=== PATIENT | male | born 1935 | race Caucasian/White ===

== ENCOUNTER → 2021-06-26 14:29 | Outpatient (BNVA) | payer MEDICARE, SELFPAY | PROVIDERS: PCP Family Medicine; Visit Provider Nurse Practitioner Family | DX: R00.1 Bradycardia, unspecified (principal) ==

== ENCOUNTER 2021-06-26 16:08 | Inpatient (IN) | payer MEDICARE, SELFPAY ==
[2021-06-26] VITALS (8 sets, daily range): BP systolic 152–187; BP diastolic 52–87; PULSE 39–56; RESP 16–20; TEMP 36.6–36.9; O2SAT 92–98; BMI 25.3
--- NOTE | 2021-06-26 16:19 | ED_ITS ---
HPI - Arrhythmia/Palpitations General: Chief Complaint: Arrhythmia/Palpitations Stated Complaint: abnormal EKG Time Seen by Provider: 06/26/21 16:19 History of Present Illness: Mr. Little is a 85-year-old gentleman with a complex past medical history including CAD with history of CABG x6, Maze procedure, removal of left atrial appendage who presents to the emergency department due to abnormal EKG and symptomatic bradycardia. He reports approximately 1 week ago acute onset of symptoms. He describes generalized fatigue and malaise. He has had shortness of breath and marked decreased exertional tolerance. Additionally has noticed mild increased edema. He saw his primary care provider who noticed that he was bradycardic and he stopped his metoprolol. He is not currently on any other AV lester blocking agents. He presented to cardiology clinic and was referred to the emergency department for either complete heart block or slow atrial fibrillation. Intensity of symptoms is moderate and severe with exertion. Course has persisted. He denies associated chest pain. He denies infectious symptoms. No other specific changes in health, exacerbating, or alleviating factors identified. 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 Allergic rhinitis Aortic valve stenosis Asthma Atherosclerosis of coronary artery of [place] heart without angina pectoris Atrial fibrillation Benign essential HTN Bilateral cataracts Chronic atrial fibrillation Coronary arteriosclerosis Coronary artery disease Dyslipidemia GERD (gastroesophageal reflux disease) Iron deficiency anemia AR (myocardial infarction) Mixed hyperlipidemia Pacemaker Prediabetes Symptomatic bradycardia Symptomatic bradycardia Surgical History H/O heart surgery MARIBELL removal H/O maze procedure History of left hip replacement History of right hip replacement S/P coronary artery bypass graft x 5 Family History Mother Hypertension Social History Smoking and tobacco status: never smoked Alcohol intake: never Physical Exam Const: COMMON NORMALS: alert GENERAL APPEARANCE: cooperative and well developed HENMT: COMMON NORMALS: normocephalic and atraumatic HEAD & SCALP: normocephalic and atraumatic Eye: COMMON NORMALS: conjunctivae normal CONJUNCTIVA: Yes conjunctivae normal SCLERA: sclerae normal Neck/C-Spine: COMMON NORMALS: supple GENERAL: Yes trachea midline Resp: COMMON NORMALS: clear to auscultation bilaterally EFFORT & INSPECTION: Yes able to speak in complete sentences AUSCULTATION: clear to auscultation bilaterally Cardio: COMMON NORMALS: regular rhythm RATE: bradycardic RHYTHM: regular rhythm GI: COMMON NORMALS: Soft to palpation PALPATION: Yes Soft to palpation and No Tenderness to palpation present (GI) Extremity: GENERAL: Yes normal exam except as noted and Yes edema Neuro: COMMON NORMALS: moves all extremities SENSORIUM/ORIENTATION: Yes alert and No Orientation impaired Psych: COMMON NORMALS: mental status grossly normal and Normal thought process present THOUGHT PROCESS: Normal thought process present Course ED course: - Patient was seen and evaluated by me at bedside - Patient placed on cardiac monitors, IV access obtained - Initial evaluation notable for exam as above, bradycardia. Blood pressure adequate at rest. - Labs and xrays personally interpreted by me. EKGs from 1547, 1747, 1838 perso nereyda interpreted by me. Bradycardia present with right bundle branch block. Suspected to be a complete heart block though no Q waves are identified on twelve-lead EKGs - Labs notable for no leukocytosis, normal hemoglobin. Metabolic panel without acute derangement to explain symptoms. BNP elevated without recent, delta troponin negative. - Imaging notable for no lobar consolidation or pneumothorax - Upon serial reexamination after treatment the patient was similar - Based on patient history, evaluation, and testing as interpreted the most likely cause of the patient's condition is complete heart block which is symptomatic - The results of ED evaluation were discussed with the patient including plan for admission due to requirement for level of care not available if discharged to prevent significant worsening/deterioration. - Admitting service was contacted and Dr Anderson with the hospitalist service agreed to admit the patient - Patient was admitted without further deterioration or significant events. Note: Click bubbles or prepopulated mccormick in note writing are used for assistance with data collection and billing and are inherently more limited than narrative and other text portions of this note. Please use narrative for additional clinical history and defer to narrative/free test for any case of contradictory information. If information appears in only free text or click bubble it should be considered present or absent as reported. Please contact note adjusto writer operator for clarifications of clinical information or contradictory information. MDM is a brief summary, contradictory or erroneous seeming information should be clarified and full note should be reviewed. Vital Signs: Vital signs: Vital Signs Temperature 98.2 F 06/28/21 07:39 Pulse Rate 48 L 06/28/21 07:39 Respiratory Rate 18 06/28/21 07:39 Blood Pressure 137/69 06/28/21 07:39 Pulse Oximetry 97 06/28/21 07:39 MDM - Arrhythmia/Palpitations Medical Decision Making 85-year-old gentleman with complex past medical history including cardiac history presenting with 1 week of sudden onset decreased exertional tolerance and generalized symptoms. Patient found to be in heart care clinic to have either slow A. fib or complete heart block. No obvious cause identified in the ED. Admitted for further management. Medical Records I reviewed the patient's medical records. Lab Data I reviewed the patient's lab results. : 06/28/21 04:20 06/28/21 04:20 Radiology Impressions Chest X-Ray 06/28/21 06:00 IMPRESSION: There are no acute chest findings. Stable appearance of the chest compared with 06/26/2021. Laboratory Results WBC 7.4 10^3/uL (4.0-10.0) 06/26/21 16:38 RBC 4.31 10^6/uL (4.1-5.3) 06/26/21 16:38 Hgb 13.6 g/dL (11.7-16.6) 06/26/21 16:38 Hct 42.0 % (42.0-52.0) 06/26/21 16:38 MCV 97.4 fl (80-94) H 06/26/21 16:38 MCH 31.6 pg (28.0-34.0) 06/26/21 16:38 MCHC 32.4 g/dL (30.0-36.0) 06/26/21 16:38 RDW 14.4 % (12.1-15.1) 06/26/21 16:38 Plt Count 150 10^3/cmm (130-400) 06/26/21 16:38 MPV 11.6 fL (7.4-10.4) H 06/26/21 16:38 Neut % (Auto) 80.1 % 06/26/21 16:38 Lymph % (Auto) 7.8 % 06/26/21 16:38 Cowley % (Auto) 11.0 % 06/26/21 16:38 Eos % (Auto) 0.4 % 06/26/21 16:38 Baso % (Auto) 0.4 % 06/26/21 16:38 Neut # (Auto) 5.89 10^3/uL (1.8-7.7) 06/26/21 16:38 Lymph # (Auto) 0.6 10^3/uL (0.8-4.8) L 06/26/21 16:38 Cowley # (Auto) 0.8 10^3/uL (0.2-0.9) 06/26/21 16:38 Eos # (Auto) 0.0 10^3/uL (0.0-0.8) 06/26/21 16:38 Baso # (Auto) 0.0 10^3/uL (0.0-0.1) 06/26/21 16:38 Nucleated RBC % (auto) 0 % 06/26/21 16:38 Nucleated RBCs # 0.0 /100WBC 06/26/21 16:38 Sodium 134 mmol/L (136-145) L 06/26/21 17:40 Potassium 4.8 mmol/L (3.5-5.1) 06/26/21 17:40 Chloride 98 mmol/L (98-107) 06/26/21 17:40 Carbon Dioxide 23 mmol/L (22-29) 06/26/21 17:40 Anion Gap 17.8 (5-19) 06/26/21 17:40 BUN 25 mg/dL (8-23) H 06/26/21 17:40 Creatinine 1.2 mg/dL (0.7-1.2) 06/26/21 17:40 GFR Calculation Not Reportable 06/26/21 17:40 Glucose 119 mg/dL (65-115) H 06/26/21 17:40 Calculated Osmolality 284 mOsm/kg (285-295) L 06/26/21 17:40 Calcium 9.5 mg/dL (8.5-10.5) 06/26/21 17:40 Magnesium 1.8 mg/dL (1.7-2.3) 06/26/21 17:40 Total Bilirubin 0.9 mg/dL (0.15-1.2) 06/26/21 17:40 AST 30 U/L (0-40) 06/26/21 17:40 ALT 24 U/L (0-41) 06/26/21 17:40 Alkaline Phosphatase 128 IU/L (40-130) 06/26/21 17:40 Troponin T Baseline 66 ng/L (0-15) H 06/26/21 17:40 NT-Pro-B Natriuret Pep 2322 pg/mL (0-450) H 06/26/21 17:40 Total Protein 6.6 g/dL (6.6-8.7) 06/26/21 17:40 Albumin 4.3 g/dL (3.5-5.2) 06/26/21 17:40 Globulin 2.3 g/dL (1.3-4.6) 06/26/21 17:40 TSH 2.71 uIU/mL (0.27-4.20) 06/26/21 17:40 Critical Care Time Critical Care Time: Critical Care Time: Yes Total Critical Care Time: 35 Attestation: Due to a high probability of clinically significant, possibly life threatening deterioration, the patient required my highest level of attention and preparedness to intervene emergently and I personally spent this critical care time directly and personally managing the patient. This critical care time included obtaining a history; examining the patient; pulse oximetry; ordering and review of laboratory and imaging studies; arranging urgent treatment with development of a management plan; evaluation of patient's response to treatment; frequent reassessment; and, discussions with other providers as applicable. It was exclusive of separately billable procedures. 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
--- NOTE | 2021-06-26 16:29 | ECG_ITS ---
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 Measurements Intervals [place] Rate: 39 P: IA: QRS: -84 QRSD: 145 T: 1 QT: 515 QTc: 418 Interpretive Statements Atrial fibrillation with junctional escape rhythm Right bundle branch block Electronically Signed On 06-27-2021 13:36:11 CDT by Vijay Moraes M.D. [id number]
--- NOTE | 2021-06-26 16:29 | XRR_ITS ---
PROCEDURE INFORMATION: Exam: XR Chest Exam date and time: 06/26/2021 4:39 PM Age: 85 years old Clinical indication: Other: Bradypnea; Additional info: Bradycardia TECHNIQUE: Imaging protocol: XR of the chest. Views: 1 view. COMPARISON: No relevant prior studies available. FINDINGS: Lungs: Unremarkable. No consolidation. Pleural spaces: Unremarkable. No pleural effusion. No pneumothorax. Heart/Mediastinum: Unremarkable. No cardiomegaly. Bones/joints: Sternotomy wires noted. Visualized osseous structures are intact. XR/XR chest 1V portable [id number] IMPRESSION: No acute findings.
[2021-06-26 16:48] LABS: Basophils % 0.4 %; Eosinophils % 0.4 %; Hemoglobin 13.6 g/dL (11.7-16.6); Lymphocytes # 0.6 10^3/uL (0.8-4.8); Lymphocytes % 7.8 %; Mean Corpuscular HGB Conc 32.4 g/dL (30.0-36.0); Mean Corpuscular Hemoglobin 31.6 pg (28.0-34.0); Mean Corpuscular Volume 97.4 fl (80-94); Mean Platelet Volume 11.6 fL (7.4-10.4); Monocytes # 0.8 10^3/uL (0.2-0.9); Neutrophils # 5.89 10^3/uL (1.8-7.7); Neutrophils % 80.1 %; Nucleated Red Blood Cells % 0 %; Platelet Count 150 10^3/cmm (130-400); Red Blood Count 4.31 10^6/uL (4.1-5.3); Red Cell Distribution Width 14.4 % (12.1-15.1); White Blood Count 7.4 10^3/uL (4.0-10.0)
--- NOTE | 2021-06-26 17:21 | PC.NURSE ---
PT PLACED ON CONTINUOUS BEDSIDE CARDIAC, HR, AND O2 MONITORING.
[2021-06-26 18:19] LABS: Troponin(5th) Baseline 66 ng/L (0-15)
[2021-06-26 18:26] LABS: Alanine Aminotransferase 24 U/L (0-41); Albumin Level 4.3 g/dL (3.5-5.2); Alkaline Phosphatase 128 IU/L (40-130); Anion Gap 17.8 (5-19); Aspartate Amino Transferase 30 U/L (0-40); Blood Urea Nitrogen 25 mg/dL (8-23); Calcium 9.5 mg/dL (8.5-10.5); Carbon Dioxide 23 mmol/L (22-29); Chloride 98 mmol/L (98-107); Globulin 2.3 g/dL (1.3-4.6); Glucose 119 mg/dL (65-115); Magnesium 1.8 mg/dL (1.7-2.3); NT Pro B Type Natriuretic Pept 2322 pg/mL (0-450); Osmolality Calculated 284 mOsm/kg (285-295); Potassium 4.8 mmol/L (3.5-5.1); Sodium 134 mmol/L (136-145); Thyroid Stimulating Hormone 2.71 uIU/mL (0.27-4.20); Total Bilirubin 0.9 mg/dL (0.15-1.2); Total Protein 6.6 g/dL (6.6-8.7)
--- NOTE | 2021-06-26 18:29 | ECG_ITS ---
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 Measurements Intervals [place] Rate: 39 P: IN: QRS: -83 QRSD: 144 T: 16 QT: 537 QTc: 434 Interpretive Statements Atrial fibrillation Junctional rhythm RIGHT BUNDLE BRANCH BLOCK POSSIBLE ANTERIOR MYOCARDIAL INFARCTION , PROBABLY OLD INFERIOR MYOCARDIAL INFARCTION , OF INDETERMINATE AGE CRITICAL TEST RESULT Compared to ECG 06/26/2021 17:47:36 Right bundle-branch block now present Myocardial infarct finding now present Electronically Signed On 06-27-2021 11:20:28 CDT by Teresita Galeana M.D. [id number]
--- NOTE | 2021-06-26 19:55 | P.HP_ITS ---
Providers/Chief Complaint Primary Care Provider: AMY DENNEY MD Chief Complaint: abnormal EKG History of Present Illness Pleasant 85-year-old gentleman with history of atrial fibrillation, CAD, CABG, left atrial appendage removal, Maze procedure, over the past week has been feeling weaker, exercise intolerance, was seen by cardiology, previously on metoprolol, but this was stopped 2 days ago due to noted bradycardia. Noted minimal swelling of his feet. On presentation to emergency department heart rates are noted in high 30s-low 40s. He states that through the week his blood pressure has been increasing from 100 teens systolic up to today was as high as 232 systolic. Currently 181/87. His blood pressures were previously well controlled. Denies any fevers. Denies any tick bites since last year. Additional assessment in ER showed normal potassium, low normal magnesium for which he received replacement, normal TSH. Baseline troponin is 66. NT proBNP is 2322. EKG with ID ventricular rhythm with right bundle branch block. He states he otherwise has been at baseline health. He reports alpha gal allergy. Review of Systems Const: Reports: fatigue; Denies: fever(s), chills, body aches or malaise Eyes: Denies: change in vision, eye discomfort or eye redness ENMT: Denies: throat pain, oral sores or ear or mastoid pain Card: Reports: swelling of feet/ankles and other (simeon); Denies: chest pain, edema, pre-syncope or dyspnea on exertion Resp: Denies: dyspnea, productive cough, change in phlegm color or hemoptysis GI: Denies: abdominal pain, nausea, vomiting, diarrhea, constipation, hematochezia or melena : Denies: flank pain, difficulty urinating, urinary frequency or hematuria Musc: Denies: back pain, joint swelling or joint redness Skin/Breast: Denies: rash or new lesions Neuro: Denies: headache(s), numbness in extremities, weakness in extremities, dizziness, confusion or seizure-like activity Endo: Denies: polyuria or polydipsia [place]/Lymph: Denies: easy bleeding or tender lymph nodes All/Imm: Denies: urticaria or tongue swelling Medications/Allergies Home Medications Medication Instructions Recorded Confirmed Last Taken Type ascorbic acid (vitamin C) 1,000 mg 1 g PO DAILY tab 05/20/21 06/26/21 Unknown History tablet aspirin 81 mg tablet,delayed 81 mg PO DAILY 05/20/21 06/26/21 06/25/21 History release atorvastatin 40 mg tablet 40 mg PO DAILY 05/20/21 06/26/21 06/25/21 History cetirizine 10 mg tablet (All Day 10 mg PO DAILY PRN 05/20/21 06/26/21 Unknown History Allergy (cetirizine)) cholecalciferol (vitamin D3) 50 50 mcg PO DAILY 05/20/21 06/26/21 Unknown History mcg (2,000 unit) capsule coenzyme Q10 10 mg capsule 10 mg PO DAILY cap 05/20/21 06/26/21 Unknown History cyanocobalamin (vitamin B-12) 1,000 mcg PO DAILY 05/20/21 06/26/21 Unknown History 1,000 mcg tablet ferrous sulfate 325 mg (65 mg 325 mg PO BID 05/20/21 06/26/21 Unknown History iron) tablet (FeroSul) levothyroxine 150 mcg capsule 150 mcg PO DAILY 05/20/21 06/26/21 06/26/21 History magnesium 250 mg tablet 250 mg PO DIRECTED tab 05/20/21 06/26/21 Unknown History metoprolol tartrate 25 mg tablet 12.5 mg PO BID 05/20/21 06/26/21 Unknown Histor y pantoprazole 40 mg tablet,delayed 40 mg PO BID tab 05/20/21 06/26/21 06/26/21 History release kcjfswpztcti-mwnjldeb-butor acid 1 cap PO DAILY 06/26/21 06/26/21 Unknown History 400 mcg-vitamin K 40 mcg capsule (Multi For Him (no iron)) Allergies Allergy/AdvReac Type Severity Reaction Status Date / Time Zokbstpqx-Hbbwo-7,3-Galactose Allergy Severe Unknown Unverified 06/26/21 19:52 (Alph Penicillins Allergy Unknown Unknown Verified 06/26/21 19:52 PFSH Acute PFSH: Medical History (Updated 06/26/21 @ 19:57 by Amando Anderson MD) 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 Allergic rhinitis Aortic valve stenosis Asthma Atrial fibrillation Bilateral cataracts Coronary arteriosclerosis GERD (gastroesophageal reflux disease) Iron deficiency anemia ND (myocardial infarction) Mixed hyperlipidemia Prediabetes Surgical History (Updated 06/26/21 @ 19:59 by Amando Anderson MD) H/O heart surgery MARIBELL removal H/O maze procedure History of left hip replacement History of right hip replacement S/P coronary artery bypass graft x 5 Family History Mother Hypertension Social History Smoking and tobacco status: never smoked Alcohol intake: never Vitals/I&O/Wt Last Vital Signs Temp 98.5 F 06/26/21 16:29 Pulse 41 L 06/26/21 19:11 Resp 16 06/26/21 19:11 BP 181/87 06/26/21 19:11 Pulse Ox 95 06/26/21 19:11 Weight last 48 hrs Weight 87.09 kg Physical Exam Narrative: Family at bedside Const: COMMON NORMALS: alert GENERAL APPEARANCE: cooperative ORIENTATION/CONSCIOUSNESS: Yes awake HENMT: COMMON NORMALS: normocephalic, EAC's normal, Normal external nose present and moist oral mucous membranes HEAD & SCALP: normocephalic NOSE: Normal external nose present EXTERNAL AUDITORY CANAL: EAC's normal Neck/C-Spine: COMMON NORMALS: no meningeal signs Chest: CHEST: Yes Symmetrical chest wall rise Resp: COMMON NORMALS: clear to auscultation bilaterally AUSCULTATION: clear to auscultation bilaterally Cardio: COMMON NORMALS: regular rate, regular rhythm and No murmurs present ( Cardio) RATE: regular rate and bradycardic RHYTHM: regular rhythm GI: COMMON NORMALS: Normal to inspection, nondistended, normoactive bowel sounds present, Soft to palpation and non-tender PALPATION: Yes Soft to palpation Extremity: GENERAL: Yes edema (trace) Neuro: COMMON NORMALS: moves all extremities SENSORIUM/ORIENTATION: Yes alert MENINGEAL SIGNS: Yes no meningeal signs Psych: COMMON NORMALS: mental status grossly normal Skin: COMMON NORMALS: no wounds RASHES: no rashes Data : 06/26/21 16:38 06/26/21 17:40 A&P Assessment and plan (1) Symptomatic bradycardia: Heart rates in the high 30s, low 40s, with fatigue, appears to possibly have some mild acute congestive heart failure with lower extremity edema. Appears to have possible compensatory rise in blood pressures. TSH normal, potassium normal, low normal magnesium, received replacement. Baseline troponin 66. Complete troponin EKG trend, does have history of CAD, although ischemia appears less likely at the moment. Has been off beta-smitha for 5 days. Pending cardiology consultation. Consideration of need of pacemaker. Monitor on telemetry. Status: Acute (2) Acute on chronic congestive heart failure: Possibly mild CHF with pedal edema. Did not have an echo on file, will assess. Monitor DAVID. Weights. Cardiac diet, Lasix p.o. for now, please reassess. Status: Acute (3) Coronary artery disease: History of CABG Continue aspirin, statin, of beta-smitha. Denies chest pain pressure. Baseline troponin 66, follow-up troponin EKG series. Status: Acute (4) Atrial fibrillation: History of atrial fibrillation, history of left atrial appendage removal during CABG. Also history of Maze procedure. On aspirin 81 mg. If ends up having pacemaker implanted, consider whether would benefit from anticoagulation to reduce risk of stroke. He appears to have CHF, HTN, although these may be transient issues related to his bradycardia. Please discuss with cardiology. 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 Added to allergy history and diet order. Patient and family state they mention it each time. Status: Acute Attestations Medical Necessity Statement*: Admission of over 2 midnights is anticipated for assessment of management of symptomatic bradycardia, CHF, likely need for pac emaker. 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
[2021-06-26 20:13] LABS: Troponin 5 2HR 58.69 ng/L (0-15); Troponin 5 2HR Delta -7.31 ABS# (0-10)
--- NOTE | 2021-06-26 21:07 | USCV_ITS ---
Transthoracic Echo Saul Little Age: 85 Gender: M : 1935 Exam Date: 06/26/2021 22:31 Ordering Phys: Amando Anderson MD Technologist: DANE [place] [facility] [place]: bradycardia/Hx of CAD BP: / HR: 43 Rhythm: Sinus Technical Quality: Adequate MEASUREMENTS (Male / Female) Normal Values 2D ECHO LV Diastolic Diameter PLAX 3.5 cm 4.2 - 5.9 / 3.9 - 5.3 cm LV Systolic Diameter PLAX 2.2 cm IVS Diastolic Thickness 1.6 cm 0.6 - 1.0 / 0.6 - 0.9 cm IVS Systolic Thickness 1.6 cm LVPW Diastolic Thickness 1.6 cm 0.6 - 1.0 / 0.6 - 0.9 cm LVPW Systolic Thickness 1.8 cm LVOT Diameter 2.3 cm LV Ejection Fraction 2D Teich 68.4 % LV Ejection Fraction MOD 2C 58.2 % LV Ejection Fraction 2C AL 58.0 % LA Diameter 3.5 cm LA Width 3.8 cm LA Height 4.6 cm RA Width 6.3 cm RA Height 5.2 cm Aorta at Sinotubular Diameter 2.7 cm M-MODE Aortic Annulus Diameter 1.6 cm LA Ao Ratio MM 2.1 MV E Point Septal Separation 0.2 cm DOPPLER AV Peak Velocity 250.0 cm/s LVOT Peak Velocity 98.0 cm/s AV Area Cont Eq vti 1.5 cm squared AV Area Cont Eq pk 1.6 cm squared MV E' Velocity 13.0 cm/s TR Peak Velocity 219.4 cm/s TR Peak Gradient 19.3 mmHg TR Mean Velocity 175.9 cm/s TR Mean Gradient 13.2 mmHg TR Velocity Time Integral 62.7 cm Right Atrial Pressure 10.0 mmHg Pulmonary Artery Systolic Pressu 29.3 mmHg FINDINGS Left Ventricle Normal left ventricular size and systolic function, EF 63 %. No regional wall motion abnormalities. Right Ventricle Mildly increased right ventricular size. Normal right ventricular systolic function. Right Atrium Mildly increased right atrial size. Left Atrium Mildly increased left atrial size. Mitral Valve No gross abnormalities noted Aortic Valve Thickened aortic valve. Aortic valve sclerosis. Tricuspid Valve Trace tricuspid valve regurgitation. Pulmonic Valve Pulmonic valve not well visualized. Pericardium No pericardial effusion. Aorta Normal aortic annulus size. CONCLUSIONS Normal left ventricular size and systolic function, EF 63 %. No regional wall motion abnormalities. Mild biatrial enlargement Features of aortic valve sclerosis. Trace tricuspid valve regurgitation. There is no pericardial effusion. There are no intracardiac masses. No previous study is available for comparison. Dr Vijay Moraes MD FACC (Electronically Signed) Final Date: 26 June 2021 23:33 S
--- NOTE | 2021-06-26 21:18 | PC.NURSE ---
i reported low pulse 46 to nurse
--- NOTE | 2021-06-26 22:29 | ECG_ITS ---
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 Measurements Intervals [place] Rate: 38 P: ID: QRS: -86 QRSD: 151 T: 8 QT: 561 QTc: 451 Interpretive Statements Atrial fibrillation with possible junctional escape rhythm RIGHT BUNDLE BRANCH BLOCK [120+ ms QRS DURATION, UPRIGHT V1, 40+ ms S IN I/aVL/V4/V5/V6] POSSIBLE ANTERIOR MYOCARDIAL INFARCTION , PROBABLY OLD [30 ms Q WAVE IN V3/V4, OR R < 0.2 mV IN V4] INFERIOR MYOCARDIAL INFARCTION , OF INDETERMINATE AGE [40+ ms Q WAVE AND/OR ST/T ABNORMALITY IN II/aVF] PROLONGED QT INTERVAL CRITICAL TEST RESULT Compared to ECG 06/26/2021 18:38:11 Prolonged QT interval now present Myocardial infarct finding still present Electronically Signed On 06-27-2021 13:56:10 CDT by Vijay Moraes M.D. [id number]
--- NOTE | 2021-06-26 22:31 | PM.CONSULT ---
Providers/Reason For Consult Consulting Physician/Specialty*: LENKA Moraes MD/cardiology Reason for Consult*: Patient is atrial fibrillation and bradycardia Requesting Physician: Dr Lechuga/Dr. Anderson Attending Physician: Amando Anderson Primary Care Provider: AMY DENNEY MD History of Present Illness History of Present Illness Saul Little is a 85 year old male Review of Systems Narrative: CONSTITUTIONAL: No fever or chills. Feeling of weakness/lethargy EYES: No blurring of vision or other visual disturbances lately. ENT: No hoarseness of voice, auditory disturbances or sore throat. CARDIOVASCULAR: As mentioned above. RESPIRATORY: No significant cough. GASTROINTESTINAL: History of GI bleed from Xarelto GENITOURINARY: No dysuria or hematuria. INTEGUMENTARY: No skin rashes or history of skin cancer. NEURO: No transient ischemic attacks or amaurosis. PSYCHIATRIC: No history of psychosis or major depression. HEMATOLOGIC: No bleeding disorders or significant anemia. ENDOCRINE: No history of polyuria or polydipsia. MUSCULOSKELETAL: No recent joint pain or swelling. ALLERGY/IMMUNOLOGY: As mentioned above. Medications/Allergies Home Medications Medication Instructions Recorded Confirmed Last Taken Type ascorbic acid (vitamin C) 1,000 mg 1 g PO DAILY tab 05/20/21 06/26/21 Unknown History tablet aspirin 81 mg tablet,delayed 81 mg PO DAILY 05/20/21 06/26/21 06/25/21 History release atorvastatin 40 mg tablet 40 mg PO DAILY 05/20/21 06/26/21 06/25/21 History cetirizine 10 mg tablet (All Day 10 mg PO DAILY PRN 05/20/21 06/26/21 Unknown History Allergy (cetirizine)) cholecalciferol (vitamin D3) 50 50 mcg PO DAILY 05/20/21 06/26/21 Unknown History mcg (2,000 unit) capsule coenzyme Q10 10 mg capsule 10 mg PO DAILY cap 05/20/21 06/26/21 Unknown History cyanocobalamin (vitamin B-12) 1,000 mcg PO DAILY 05/20/21 06/26/21 Unknown History 1,000 mcg tablet ferrous sulfate 325 mg (65 mg 325 mg PO BID 05/20/21 06/26/21 Unknown History iron) tablet (FeroSul) levothyroxine 150 mcg capsule 150 mcg PO DAILY 05/20/21 06/26/21 06/26/21 History magnesium 250 mg tablet 250 mg PO DIRECTED tab 05/20/21 06/26/21 Unknown History metoprolol tartrate 25 mg tablet 12.5 mg PO BID 05/20/21 06/26/21 Unknown History pantoprazole 40 mg tablet,delayed 40 mg PO BID tab 05/20/21 06/26/21 06/26/21 History release hanxqvhcbzck-xonwazgb-zpobt acid 1 cap PO DAILY 06/26/21 06/26/21 Unknown History 400 mcg-vitamin K 40 mcg capsule (Multi For Him (no iron)) Allergies Allergy/AdvReac Type Severity Reaction Status Date / Time Nxihojwja-Dbpeb-0,3-Galactose Allergy Severe Unknown Unverified 06/26/21 19:52 (Alph Penicillins Allergy Unknown Unknown Verified 06/26/21 19:52 PFSH Acute PFSH: Medical History 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 Allergic rhinitis Aortic valve stenosis Asthma Atrial fibrillation Bilateral cataracts Coronary arteriosclerosis GERD (gastroesophageal reflux disease) Iron deficiency anemia [place] (myocardial infarction) Mixed hyperlipidemia Prediabetes Surgical History H/O heart surgery MARIBELL removal H/O maze procedure History of left hip replacement History of right hip replacement S/P coronary artery bypass graft x 5 Family History Mother Hypertension Social History Smoking and tobacco status: never smoked Alcohol intake: never Vitals/I&O/Wt Last Vital Signs Temp 97.8 F 06/26/21 21:07 Pulse 46 L 06/26/21 21:07 Resp 18 06/26/21 21:07 BP 175/69 06/26/21 21:07 Pulse Ox 96 06/26/21 21:07 Weight last 48 hrs Weight 192 lb Physical Exam Narrative: GENERAL: The patient is alert and oriented times three. Not in any acute distress. Healthy looking elderly male HEENT: No significant pallor, icterus or lymphadenopathy. The pupils are symmetrical light. Oral cavity: There are no mucous membrane lesions. Funduscopic examination: The fundus is not visualized NECK: Trachea appears to be central. No masses noted. No JVD or thyromegaly appreciated. No carotid bruit. RESPIRATORY: Chest is symmetrical. No intercostals muscle retraction or any accessory muscle activation. There is no chest wall tenderness. Breath sounds are heard bilaterally. No rales or rhonchi heard. No evidence of any consolidation. BREASTS: Deferred. HEART: The PMI could not be palpated. No other palpable precordial events. First heart sound is variable. Second heart sound is normal. No S3. Short systolic murmur in the left sternal border. No diastolic murmurs. ABDOMEN: No vessel pulsations or distention. No tenderness. No organomegaly appreciated. No abdominal bruit. Bowel sounds are normally heard. : Deferred. RECTAL: Deferred. LYMPHATIC: No lymphadenopathy noted in the neck or groin. EXTREMITIES: No edema or cyanosis. No clubbing. The dorsalis pedis and posterior pulses are weak bilaterally. MUSCULOSKELETAL: No acute joint deformities or swelling. SKIN: There are no significant scars or skin rash noted. NEUROPSYCHIATRIC: The patient is alert and oriented x3. Appears to be in a good mood. The higher functions are grossly within normal limits. No tremors or rigidity noted. Data : 06/27/21 05:00 06/27/21 05:00 Other Labs: Laboratory Last Values WBC 7.4 10^3/uL (4.0-10.0) 06/26/21 16:38 RBC 4.31 10^6/uL (4.1-5.3) 06/26/21 16:38 Hgb 13.6 g/dL (11.7-16.6) 06/26/21 16:38 Hct 42.0 % (42.0-52.0) 06/26/21 16:38 MCV 97.4 fl (80-94) H 06/26/21 16:38 MCH 31.6 pg (28.0-34.0) 06/26/21 16:38 MCHC 32.4 g/dL (30.0-36.0) 06/26/21 16:38 RDW 14.4 % (12.1-15.1) 06/26/21 16:38 Plt Count 150 10^3/cmm (130-400) 06/26/21 16:38 MPV 11.6 fL (7.4-10.4) H 06/26/21 16:38 Neut % (Auto) 80.1 % 06/26/21 16:38 Lymph % (Auto) 7.8 % 06/26/21 16:38 [place] % (Auto) 11.0 % 06/26/21 16:38 Eos % (Auto) 0.4 % 06/26/21 16:38 Baso % (Auto) 0.4 % 06/26/21 16:38 Neut # (Auto) 5.89 10^3/uL (1.8-7.7) 06/26/21 16:38 Lymph # (Auto) 0.6 10^3/uL (0.8-4.8) L 06/26/21 16:38 [place] # (Auto) 0.8 10^3/uL (0.2-0.9) 06/26/21 16:38 Eos # (Auto) 0.0 10^3/uL (0.0-0.8) 06/26/21 16:38 Baso # (Auto) 0.0 10^3/uL (0.0-0.1) 06/26/21 16:38 Nucleated RBC % (auto) 0 % 06/26/21 16:38 Nucleated RBCs # 0.0 /100WBC 06/26/21 16:38 Sodium 134 mmol/L (136-145) L 06/26/21 17:40 Potassium 4.8 mmol/L (3.5-5.1) 06/26/21 17:40 Chloride 98 mmol/L (98-107) 06/26/21 17:40 Carbon Dioxide 23 mmol/L (22-29) 06/26/21 17:40 Anion Gap 17.8 (5-19) 06/26/21 17:40 BUN 25 mg/dL (8-23) H 06/26/21 17:40 Creatinine 1.2 mg/dL (0.7-1.2) 06/26/21 17:40 GFR Calculation Not Reportable 06/26/21 17:40 Glucose 119 mg/dL (65-115) H 06/26/21 17:40 Calculated Osmolality 284 mOsm/kg (285-295) L 06/26/21 17:40 Calcium 9.5 mg/dL (8.5-10.5) 06/26/21 17:40 Magnesium 1.8 mg/dL (1.7-2.3) 06/26/21 17:40 Total Bilirubin 0.9 mg/dL (0.15-1.2) 06/26/21 17:40 AST 30 U/L (0-40) 06/26/21 17:40 ALT 24 U/L (0-41) 06/26/21 17:40 Alkaline Phosphatase 128 IU/L (40-130) 06/26/21 17:40 Troponin T Baseline 66 ng/L (0-15) H 06/26/21 17:40 Troponin T 120 Minute 58.69 ng/L (0-15) H 06/26/21 19:45 Delta Troponin T -7.31 ABS# (0-10) L 06/26/21 19:45 NT-Pro-B Natriuret Pep 2322 pg/mL (0-450) H 06/26/21 17:40 Total Protein 6.6 g/dL (6.6-8.7) 06/26/21 17:40 Albumin 4.3 g/dL (3.5-5.2) 06/26/21 17:40 Globulin 2.3 g/dL (1.3-4.6) 06/26/21 17:40 TSH 2.71 uIU/mL (0.27-4.20) 06/26/21 17:40 CXR: My impression: Borderline cardiac silhouette with no lung infiltrate. No acute pathology. EKG 1: My Interpretation: Atrial fibrillation with a possible junctional escape rhythm. Right bundle branch block pattern. Features of old inferior and anterior wall myocardial infarction. Some nonspecific ST changes. EKG computer-generated impression: Chest X-Ray 06/26/21 16:29 IMPRESSION: No acute findings. A&P Assessment and plan (1) Symptomatic bradycardia: In view of the patient's history of chronic atrial fibrillation and symptomatic bradycardia, in order to further manage his condition, he requires a permanent pacemaker implantation. This was discussed with the patient in detail which is understood well. The risk of bleeding, hematoma, vascular injury, pneumothorax, infection, renal failure and other concomitant complications were explained in detail. The patient understood this well and consented to proceed. Status: Acute (2) Atherosclerosis of coronary artery of [place] heart without angina pectoris: The patient has no specific symptoms of coronary insufficiency. At this point, he may not require any specific intervention. Advised to continue on the current treatment measures. Status: Acute (3) Benign essential HTN: The blood pressure still remains elevated. We will try to optimize his antihypertensive medications. I may start the patient on amlodipine 5 mg p.o. now and daily. Status: Acute (4) Dyslipidemia: May continue on the current medication for the time being. Status: Acute (5) Chronic atrial fibrillation: Apparently this patient had maze procedures and atrial appendage resection. He has a history of massive GI bleed from Xarelto. He is not on any oral anticoagulation at this point. He has been on iron tablets for almost a year. He stopped taking iron supplement a year ago. Status: Acute (6) Acute on chronic diastolic (congestive) heart failure: Patient may be carefully treated with the diuretics. I may go ahead and an echocardiogram, to evaluate the LV function. After reviewing the results, further recommendations will be made. Status: Acute Plan Based on the patient's clinical progress and the results of the above test results, further recommendations will be made. Thank you for the opportunity to evaluate this patient and make these recommendations Consult Attestations Medical Necessity Statement: Patient requires continued hospital stay for close monitoring and further management Coding Level of Care Code Acute Corporate Director Of Human Resources for Francis Jennings Medical Decision Making High Complexity Diagnoses Atherosclerosis of coronary artery of [place] heart without angina pectoris I25.10 Benign essential HTN I10 Dyslipidemia E78.5 Chronic atrial fibrillation I48.20 Symptomatic bradycardia R00.1 Acute on chronic diastolic (congestive) heart failure I50.33
[2021-06-26] MEDS: amlodipine 5 mg Tablet PO (23:04)
[2021-06-27] VITALS (11 sets, daily range): BP systolic 138–183; BP diastolic 56–85; PULSE 38–63; RESP 16–24; TEMP 36.2–37; O2SAT 93–100
--- NOTE | 2021-06-27 | PC.NURSE ---
i reported low pulse 56 to nurse
[2021-06-27 00:16] LABS: Troponin 5 6HR 65.98 ng/L (0-15)
[2021-06-27 00:17] LABS: Troponin 5 6HR Delta -0.02 ng/L (0-12)
--- NOTE | 2021-06-27 01:29 | PC.NURSE ---
Patient arrived to floor via wc from ED, aaox4, no c/o pain, no needs at this time, no skin concerns, telemetry placed on patient. took all belongings home except phone and glasses.
--- NOTE | 2021-06-27 04:33 | PC.NURSE ---
i reported low pulse 41 to nurse
[2021-06-27 05:18] LABS: Basophils % 0.4 %; Eosinophils # 0.1 10^3/uL (0.0-0.8); Eosinophils % 2.1 %; Hematocrit 38.7 % (42.0-52.0); Hemoglobin 12.5 g/dL (11.7-16.6); Lymphocytes # 0.8 10^3/uL (0.8-4.8); Lymphocytes % 14.3 %; Mean Corpuscular HGB Conc 32.3 g/dL (30.0-36.0); Mean Corpuscular Hemoglobin 31.3 pg (28.0-34.0); Mean Platelet Volume 11.2 fL (7.4-10.4); Monocytes # 0.7 10^3/uL (0.2-0.9); Monocytes % 13.5 %; Neutrophils # 3.64 10^3/uL (1.8-7.7); Neutrophils % 69.5 %; Nucleated Red Blood Cells % 0 %; Platelet Count 135 10^3/cmm (130-400); Red Blood Count 3.99 10^6/uL (4.1-5.3); Red Cell Distribution Width 14.5 % (12.1-15.1); White Blood Count 5.2 10^3/uL (4.0-10.0)
[2021-06-27 05:43] LABS: Anion Gap 15.4 (5-19); Blood Urea Nitrogen 24 mg/dL (8-23); Calcium 9.4 mg/dL (8.5-10.5); Carbon Dioxide 23 mmol/L (22-29); Chloride 103 mmol/L (98-107); Glucose 119 mg/dL (65-115); Osmolality Calculated 289 mOsm/kg (285-295); Potassium 4.4 mmol/L (3.5-5.1); Sodium 137 mmol/L (136-145)
--- NOTE | 2021-06-27 06:45 | PC.NURSE ---
Patient AAOx4, remains bradycardic with remaining vitals stable. No c/o pain over night, no new events and no needs, good UOP, OOB to bathroom without difficulty. Room clutter free and call light in reach, will report to oncoming nurse.
[2021-06-27] MEDS: atorvastatin 40 mg Tablet PO (08:05)
[2021-06-27] MEDS: cyanocobalamin 1,000 mcg Tablet 1000 MCG PO (08:05)
[2021-06-27] MEDS: ferrous sulfate EC 325 mg Tablet PO ×2 (08:05→17:36)
[2021-06-27] MEDS: cholecalciferol (vitamin D3) 1,000 unit Tablet 2000 UNIT PO (08:05)
[2021-06-27] MEDS: levothyroxine 150 mcg Tablet PO (08:05)
[2021-06-27] MEDS: amlodipine 5 mg Tablet PO (08:05)
[2021-06-27] MEDS: pantoprazole DR 40 mg Tablet PO ×2 (08:05→17:36)
--- NOTE | 2021-06-27 12:20 | PM.PN ---
Subjective Subjective: The patient is feeling okay. He still feels fatigued. No chest pain or shortness of breath. No dizziness or syncopal episode Medications: Medication Review Details: Current Medications Amlodipine Besylate (Amlodipine 5 Mg Tablet) 5 mg PO DAILY [facility] Last Admin: 06/27/21 08:05 Dose: 5 mg Documented by: Aspirin (Aspirin 81 Mg Ec Tablet) 81 mg PO DAILY [facility] Last Admin: 06/27/21 08:04 Dose: Not Given Documented by: Atorvastatin Calcium (Atorvastatin 40 Mg Tablet) 40 mg PO DAILY [facility] Last Admin: 06/27/21 08:05 Dose: 40 mg Documented by: Cetirizine HCl (Cetirizine 10 Mg Tablet) 10 mg PO DAILY PRN PRN Reason: Allergy Symptoms Cyanocobalamin (Cyanocobalamin 1,000 Mcg Tablet) 1,000 mcg PO DAILY [facility] Last Admin: 06/27/21 08:05 Dose: 1,000 mcg Documented by: Ferrous Sulfate (Ferrous Sulfate Ec 325 Mg Tablet) 325 mg PO BID [facility] Last Admin: 06/27/21 08:05 Dose: 325 mg Documented by: Sodium Chloride (Sodium Chloride 0.9%) 1,000 mls @ 75 mls/hr IV .[id number] [facility] Vancomycin HCl 1,000 mg/ (Sodium Chloride) 250 mls @ 250 mls/hr IV ONCE ONE; Protocol Stop: 06/27/21 13:04 Levothyroxine Sodium (Levothyroxine 150 Mcg Tablet) 150 mcg PO DAILY [facility] Last Admin: 06/27/21 08:05 Dose: 150 mcg Documented by: Non-Formulary Medication (Magnesium) 250 mg PO DIRECTED [facility] Non-Formulary Medication (Zpiwfoto-Llz-Leavb Acid-Vit K [Multi For Him (No Iron)]) 1 cap PO DAILY [facility] Non-Formulary Medication (Coenzyme Q10) 10 mg PO DAILY [facility] Pantoprazole Sodium (Pantoprazole Dr 40 Mg Tablet) 40 mg PO BID [facility] Last Admin: 06/27/21 08:05 Dose: 40 mg Documented by: Vitamin D (Cholecalciferol (Vitamin D3) 1,000 Unit Tablet) 2,000 unit PO DAILY [facility] Last Admin: 06/27/21 08:05 Dose: 2,000 unit Documented by: Vitals/I&O/Wt Last Vital Signs Temp 97.1 F L 06/27/21 08:00 Pulse 38 L 06/27/21 08:00 Resp 16 06/27/21 08:00 BP 174/67 06/27/21 08:00 Pulse Ox 95 06/27/21 08:00 Weight last 48 hrs Weight 219 lb Weight 192 lb Physical Exam Narrative: GENERAL: The patient is alert and oriented times three. Not in any acute distress. Healthy looking elderly male HEENT: No significant pallor, icterus or lymphadenopathy. NECK: Trachea appears to be central. No masses noted. No JVD or thyromegaly appreciated. No carotid bruit. RESPIRATORY: Chest is symmetrical. No intercostals muscle retraction or any accessory muscle activation. There is no chest wall tenderness. Breath sounds are heard bilaterally. No rales or rhonchi heard. No evidence of any consolidation. BREASTS: Deferred. HEART: The PMI could not be palpated. No other palpable precordial events. First heart sound is variable. Second heart sound is normal. No S3. Short systolic murmur in the left sternal border. No diastolic murmurs. ABDOMEN: No vessel pulsations or distention. No tenderness. No organomegaly appreciated. No abdominal bruit. Bowel sounds are normally heard. : Deferred. RECTAL: Deferred. LYMPHATIC: No lymphadenopathy noted in the neck or groin. EXTREMITIES: No edema or cyanosis. No clubbing. The dorsalis pedis and posterior pulses are weak bilaterally. MUSCULOSKELETAL: No acute joint deformities or swelling. SKIN: There are no significant scars or skin rash noted. NEUROPSYCHIATRIC: The patient is alert and oriented x3. Appears to be in a good mood. The higher functions are grossly within normal limits. No tremors or rigidity noted. Data : 06/27/21 05:00 06/27/21 05:00 Echo: My impression: Normal left ventricular size and systolic function, EF 63 %. ?No regional wall motion abnormalities. ?Mild biatrial enlargement ?Features of aortic valve sclerosis. ?Trace tricuspid valve regurgitation. ?There is no pericardial effusion. ?There are no intracardiac masses. ?No previous study is available for comparison. A&P Assessment and plan (1) Symptomatic bradycardia: In view of the patient's history of chronic atrial fibrillation and symptomatic bradycardia, in order to further manage his condition, he requires a permanent pacemaker implantation. This was discussed with the patient in detail which is understood well. The risk of bleeding, hematoma, vascular injury, pneumothorax, infection, renal failure and other concomitant complications were explained in detail. The patient understood this well and consented to proceed. Scheduled procedure for this afternoon The echocardiogram was reviewed. His LV ejection fraction is normal. We will go ahead with a single-chamber permanent pacemaker Status: Acute (2) Atherosclerosis of coronary artery of [place] heart without angina pectoris: The patient has no specific symptoms of coronary insufficiency. At this point, he may not require any specific intervention. Advised to continue on the current treatment measures. Status: Acute (3) Benign essential HTN: The blood pressure still remains elevated. We will try to optimize his antihypertensive medications. I may start the patient on amlodipine 5 mg p.o. now and daily. Status: Acute (4) Dyslipidemia: May continue on the current medication for the time being. Status: Acute (5) Chronic atrial fibrillation: Apparently this patient had maze procedures and atrial appendage resection. He has a history of massive GI bleed from Xarelto. He is not on any oral anticoagulation at this point. He has been on iron tablets for almost a year. He stopped taking iron supplement a year ago. Status: Acute (6) Acute on chronic diastolic (congestive) heart failure: Patient may be carefully treated with the diuretics. I may go ahead and an echocardiogram, to evaluate the LV function. After reviewing the results, further recommendations will be made. Status: Acute Plan Once again I discussed the patient about the permanent pacemaker mentation. Risk and benefits were explained. All the questions were answered to his satisfaction. We will go ahead with the procedure this afternoon. Continue on the current management for the time being Attestations Medical Necessity Statement*: Patient requires continued hospital stay for close monitoring and further management Coding Level of Care Code Acute Counter Helper for Francis Fwd History Detailed Exam Detailed Medical Decision Making Moderate Complexity Diagnoses Symptomatic bradycardia R00.1 Atherosclerosis of coronary artery of [place] heart without angina pectoris I25.10 Benign essential HTN I10 Dyslipidemia E78.5 Chronic atrial fibrillation I48.20 Acute on chronic diastolic (congestive) heart failure I50.33
--- NOTE | 2021-06-27 12:28 | W.PM.OPSUD ---
Surgery/Procedure H&P Update DATE OF PROCEDURE: June 27, 2021 DATE H&P PERFORMED: 06/27/21 H&P UPDATE INFORMATION: I have reviewed H&P completed within last 30 days, I have examined patient prior to procedure and No changes to prior documentation PREOP DIAGNOSIS: Symptomatic bradycardia PRIMARY INDICATION FOR PROCEDURE: Atrial fibrillation with a symptomatic bradycardia PLANNED PROCEDURE: Operation Date: 06/27/21 12:30 Proposed Procedures p Pacemaker Insertion(Not Applicable) - Vijay Moraes MD PATIENT REASSESSED PRIOR TO SEDATION, WITH NO CHANGE NOTED: Yes PHYSICAL EXAM: alert, oriented x 3, clear to auscultation bilaterally and regular rate & rhythm AIRWAY EVAL/ANESTHESIA PLAN: normal airway, see other exam findings, ASA III, Monitored Anesthesia, Local Anesthesia, Risks, benefits & alternatives of sedation and/or procedure discussed and Patient agrees to continue as planned
--- NOTE | 2021-06-27 15:53 | PM.PN ---
Subjective Subjective: Pt doing much better today. Has not ambulated so does not know if he will get fatigued. Denies dizziness, CP, SOB. To have PCM placed today Vitals/I&O/Wt Last Vital Signs Temp 98.3 F 06/27/21 12:00 Pulse 38 L 06/27/21 12:00 Resp 16 06/27/21 12:00 BP 143/65 06/27/21 12:00 Pulse Ox 93 06/27/21 12:00 Weight last 48 hrs Weight 99.337 kg Weight 87.09 kg Physical Exam Narrative: NAD CVS S1S2, [place], Sys Mur 2/ RS: CTA Abd soft, NT, BS+ Edema (-) DRAPERY CUTTER A&Ox4 Data : 06/27/21 05:00 06/27/21 05:00 A&P Assessment and plan (1) Acute on chronic diastolic (congestive) heart failure: compensating Status: Acute (2) Symptomatic bradycardia: At Fib w. bradycardia Status: Acute (3) Chronic atrial fibrillation: slow rate Status: Acute (4) Benign essential HTN: stable Status: Acute (5) Atherosclerosis of coronary artery of [place] heart without angina pectoris: stable Status: Acute (6) Dyslipidemia: Status: Acute Plan Pt NPO To hace Perm PCM placed today Resume home meds after proc DVT Prophylaxis w/ Lovenox GI Prophy Attestations Medical Necessity Statement*: Pt w/ symp bradycardia w/ At Fibrillation and Ac Diastolic CHF and to have pacemaker placed today. Will need continued hospitalization Time Spent in Patient Care: 40 min Coding Level of Care Code Acute Hand Cloth Cutter for rFancis Fwdonita Diagnoses Acute on chronic diastolic (congestive) heart failure I50.33 Symptomatic bradycardia R00.1 Chronic atrial fibrillation I48.20 Benign essential HTN I10 Atherosclerosis of coronary artery of [place] heart without angina pectoris I25.10 Dyslipidemia E78.5
--- NOTE | 2021-06-27 16:58 | PM.OP ---
Operative Report Date of procedure: June 27, 2021 Pre-op diagnosis: Preop Diagnosis Symptomatic bradycardia Brief History: 85-year-old white male with a history of coronary artery disease and chronic atrial fibrillation, presented with symptomatic bradycardia with a heart rate in the 30s. He was taken off the beta-smitha 4 days ago by the primary care provider for bradycardia. In view of the persistent symptomatic bradycardia, for further management of his condition, I permanent pacemaker implantation was recommended. Procedure: LOCATION: Outpatient PREOPERATIVE DIAGNOSES: Chronic atrial fibrillation/symptomatic bradycardia POSTOPERATIVE DIAGNOSES: Same. COMPLICATIONS: None ESTIMATED BLOOD LOSS: Around 5 milliliters. BRIEF HISTORY: 85-year-old white male with a history of chronic atrial fibrillation presented with complaints of generalized weakness/dizziness. He was found to be bradycardic with a heart rate in the low 30s. Underlying rhythm was atrial fibrillation. For further management of the patient's condition, a permanent pacemaker implantation was recommended. A single-chamber permanent pacemaker implantation was recommended for further management because of chronic A. fib.. The procedure was explained to the patient in detail with the risks and benefits. The risks of bleeding, hematoma, vascular injury, infection, pneumothorax, myocardial perforation and other concomitant complications were explained in detail, which the patient understood well and consented to proceed. PROCEDURE DESCRIPTION: The patient was brought to the Cardiac Catheterization Lab. The left and the right side of the neck and the subclavian area were cleaned and draped in a sterile fashion. 1% Xylocaine was used as the local anesthetic agent. A left subclavian venous access was obtained using a micropuncture needle system, under fluoroscopic guidance, after injecting 20 mL of Omnipaque in the left antecubital vein. A 2-inch long incision was made 2.0 centimeters below the midclavicular region. By sharp and blunt dissection, a pacemaker pocket was made. Over the guidewire, a 7-Persian venous sheath with dilator was advanced. The venous dilator and the guidewire were taken out. A screw-in ventricular lead was advanced through the venous sheath and was positioned towards the right ventricle. Under fluoroscopy guidance, the ventricular lead was positioned toward the right ventricular apex. Good pacing and sensing thresholds were obtained. The lead was secured to the endocardium by advancing the helix. The stability of the lead was tested by gentle twisting movements and also by asking the patient to take some deep breaths and cough The venous sheath was peeled off at this time. The lead was secured to the pectoralis fascia by suturing with 1-0 Surgilon. The pacemaker pocket was copiously irrigated with Vancomycin solution. Complete hemostasis was achieved. Sponge counts were confirmed. The leads was attached to a Medtronic generator. The lead was positioned behind the generator and the generator was attached to the pectoralis fascia by suturing with 0 Surgilon. The pocket was closed in layers. Skin was approximated using 4-0 Vicryl. IMPLANTED DEVICES: VENTRICULAR LEAD: Model number: 5076/58 Serial number:[id number] Make : DrinkWiser GENERATOR Model number: [id number] Serial number: [id number] Brand: Paguate XT SR MRI SureScan Make: Medtronic IMPLANTATION DATA: With the pacing system analyzer, the R-wave sensing was 8.1 millivolts with a lead impedance of 723 ohms and a pacing threshold of 0.6 volts at .4 milliseconds. Through the device, the R-wave sensing was not obtained because of the pacer dependency . The lead impedance of 570 and a pacing threshold of 0.75 volts at 0.4 milliseconds. The pacemaker was set for VVIR mode with upper rate of 130 and a lower rate of 60. A pressure dressing was applied over the pacemaker site. The patient was transferred to the Medical Floor in stable condition. A chest x-ray was ordered to confirm the lead position and also to rule out any pneumothorax.
[2021-06-28] MEDS: acetaminophen 650 mg/20.3 mL UDC PO (01:19)
[2021-06-28 04:00] VITALS: BP 145/69; PULSE 59; RESP 18; TEMP 36.9; O2SAT 94
[2021-06-28 04:58] LABS: Basophils % 0.5 %; Eosinophils # 0.1 10^3/uL (0.0-0.8); Eosinophils % 2.1 %; Hematocrit 37.6 % (42.0-52.0); Lymphocytes # 0.6 10^3/uL (0.8-4.8); Lymphocytes % 9.5 %; Mean Corpuscular HGB Conc 31.9 g/dL (30.0-36.0); Mean Corpuscular Volume 97.2 fl (80-94); Mean Platelet Volume 11.3 fL (7.4-10.4); Monocytes # 0.7 10^3/uL (0.2-0.9); Monocytes % 12.7 %; Neutrophils # 4.36 10^3/uL (1.8-7.7); Neutrophils % 74.9 %; Nucleated Red Blood Cells % 0 %; Platelet Count 126 10^3/cmm (130-400); Red Blood Count 3.87 10^6/uL (4.1-5.3); Red Cell Distribution Width 14.5 % (12.1-15.1); White Blood Count 5.8 10^3/uL (4.0-10.0)
[2021-06-28 05:26] LABS: Anion Gap 13.2 (5-19); Blood Urea Nitrogen 23 mg/dL (8-23); Calcium 9.2 mg/dL (8.5-10.5); Carbon Dioxide 23 mmol/L (22-29); Chloride 102 mmol/L (98-107); Glucose 117 mg/dL (65-115); Osmolality Calculated 283 mOsm/kg (285-295); Potassium 4.2 mmol/L (3.5-5.1); Sodium 134 mmol/L (136-145)
--- NOTE | 2021-06-28 05:52 | PC.NURSE ---
Patient AAOx4, elevated BP throughout shift with remaining VSS, remains in paced rhythem but did have a few bradycardic episodes throughout night while being paced. Patient slept well and had some c/o of soreness to operation site that was controlled by pain medication per MAY. NO new events or needs, good UOP, OOB to bathroom. Room clean and clutter free with call light in reach.
[2021-06-28 06:00] VITALS: PULSE 60
--- NOTE | 2021-06-28 06:00 | XRR_ITS ---
PROCEDURE INFORMATION: Exam: XR Chest Exam date and time: 06/28/2021 6:17 AM Age: 85 years old Clinical indication: Device placement; Cardiac pacemaker lead placement or adjustment; Prior surgery; Additional info: Post permanent pacemaker placement; Visualize lead tip TECHNIQUE: Imaging protocol: XR of the chest. Views: 1 view. COMPARISON: CR XR chest 1V portable [id number] 06/26/2021 4:39 PM FINDINGS: Tubes, catheters and devices: A bipolar pacemaker is placed via the left subclavian vein. EKG leads overlie the chest. Lungs: Unremarkable. No consolidation. Pleural spaces: Unremarkable. No pleural effusion. No pneumothorax. Heart/Mediastinum: Unremarkable. No cardiomegaly. Bones/joints: Status post median sternotomy. XR/XR chest 1V [id number] IMPRESSION: There are no acute chest findings. Stable appearance of the chest compared with 06/26/2021.
--- NOTE | 2021-06-28 06:00 | ECG_ITS ---
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 Measurements Intervals [place] Rate: 60 P: OR: QRS: -81 QRSD: 185 T: 86 QT: 491 QTc: 491 Interpretive Statements ELECTRONIC VENTRICULAR PACEMAKER ABNORMAL RHYTHM ECG Compared to ECG 06/26/2021 23:46:59 Right bundle-branch block no longer present Myocardial infarct finding no longer present Prolonged QT interval no longer present Electronically Signed On 06-28-2021 11:37:43 CDT by Eleno Rodriguez M.D. [id number]
[2021-06-28] MEDS: vancomycin 1,000 MG in sodium chloride 0.9% 250 ML 250 MG IV (06:52)
[2021-06-28 07:39] VITALS: BP 137/69; PULSE 48; RESP 18; TEMP 36.8; O2SAT 97
[2021-06-28] MEDS: cyanocobalamin 1,000 mcg Tablet 1000 MCG PO (07:40)
[2021-06-28] MEDS: cholecalciferol (vitamin D3) 1,000 unit Tablet 2000 UNIT PO (07:40)
[2021-06-28] MEDS: aspirin 81 mg EC Tablet PO (07:40)
[2021-06-28] MEDS: levothyroxine 150 mcg Tablet PO (07:40)
[2021-06-28] MEDS: amlodipine 5 mg Tablet PO (07:40)
[2021-06-28] MEDS: pantoprazole DR 40 mg Tablet PO (07:41)
[2021-06-28] MEDS: atorvastatin 40 mg Tablet PO (07:41)
[2021-06-28] MEDS: ferrous sulfate EC 325 mg Tablet PO (07:41)
--- NOTE | 2021-06-28 11:10 | PM.DCS ---
Discharge Providers Date of Admission: 06/26/21 19:18 Date of Discharge: June 28, 2021 Attending Provider at Admission: Amando Anderson Attending Provider at Discharge: Vladimir Yousif MD Primary Care Provider: AMY HAWKINS MD Diagnoses at Discharge Discharge Diagnosis (1) Acute on chronic diastolic (congestive) heart failure: Status: Acute (2) Symptomatic bradycardia: Status: Acute (3) Chronic atrial fibrillation: Status: Acute (4) Benign essential HTN: Status: Acute (5) Atherosclerosis of coronary artery of [place] heart without angina pectoris: Status: Acute (6) Dyslipidemia: Status: Acute Reason for Visit Reason for Visit: abnormal EKG Hospital Course Hospital Course HPI : Dr: Amando Anderson MD Pleasant 85-year-old gentleman with history of chronic atrial fibrillation, CAD, CABG, left atrial appendage removal, Maze procedure, over the past week has been feeling weaker, exercise intolerance, was seen by cardiology, previously on metoprolol, but this was stopped 2 days ago due to noted bradycardia.? Noted minimal swelling of his feet.? On presentation to emergency department heart rates are noted in high 30s-low 40s.? He states that through the week his blood pressure has been increasing from 100 teens systolic up to today was as high as 232 systolic.? Currently 181/87.? His blood pressures were previously well controlled. Denies any fevers.? Denies any tick bites since last year. Additional assessment in ER showed normal potassium, low normal magnesium for which he received replacement, normal TSH.? Baseline troponin is 66.? NT proBNP is 2322.? EKG with ID ventricular rhythm with right bundle branch block. Hospital course: Patient was admitted for the management of symptomatic bradycardia: S/p ?single-chamber permanent pacemaker implantation, patient tolerated the procedure well. Postop site was clean. During the hospital stay his blood pressure was also on the higher side above the goal blood pressure, for which amlodipine 5 mg p.o. daily was added, metoprolol tartrate dose has been increased to 25 mg p.o. twice daily, from initial dose of 12.5 MG PO BID,patient was also discharged on Keflex 500 mg every 6 hours daily for next 7 days.Patient will follow in outpatient cardiology clinic in 1 week, for pacemaker ?interrogation As well as wound site check.He will continue to follow Dr. Moraes as an outpatient. Patient responded well to medical management and is being discharged stable condition Physical Exam Const: COMMON NORMALS: patient oriented x3 HENMT: COMMON NORMALS: normocephalic and atraumatic HEAD & SCALP: normocephalic and atraumatic Chest: CHEST: Yes Symmetrical chest wall rise Resp: COMMON NORMALS: normal respiratory effort, No retractions, No use of accessory muscles and clear to auscultation bilaterally EFFORT & INSPECTION: Yes symmetric chest movement AUSCULTATION: clear to auscultation bilaterally Cardio: COMMON NORMALS: regular rate, regular rhythm, S1 normal heart sound present, S2 normal heart sound present, No gallops present (Cardio), No murmurs present (Cardio), No rub (Cardio) and Peripheral pulses 2+ throughout RATE: regular rate RHYTHM: regular rhythm HEART SOUNDS: S1 normal heart sound present and S2 normal heart sound present PERIPHERAL PULSES: Peripheral pulses 2+ throughout GI: COMMON NORMALS: Normal to inspection, nondistended, normoactive bowel sounds present, Soft to palpation, non-tender, No hepatosplenomegaly present and no masses AUSCULTATION: Yes normoactive bowel sounds PALPATION: Yes Soft to palpation and Yes No hepatosplenomegaly present RECTAL EXAM: Yes deferred Extremity: COMMON NORMALS: no clubbing, cyanosis or edema and no pedal edema Neuro: COMMON NORMALS: patient oriented x3 Discharge Data Studies Completed and Pending Completed Studies During Hospitalization Category Date Time 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 Stable appearance of the chest compared with 06/26/2021. Laboratory Results WBC 5.8 10^3/uL (4.0-10.0) 06/28/21 04:20 RBC 3.87 10^6/uL (4.1-5.3) L 06/28/21 04:20 Hgb 12.0 g/dL (11.7-16.6) 06/28/21 04:20 Hct 37.6 % (42.0-52.0) L 06/28/21 04:20 MCV 97.2 fl (80-94) H 06/28/21 04:20 MCH 31.0 pg (28.0-34.0) 06/28/21 04:20 MCHC 31.9 g/dL (30.0-36.0) 06/28/21 04:20 RDW 14.5 % (12.1-15.1) 06/28/21 04:20 Plt Count 126 10^3/cmm (130-400) L 06/28/21 04:20 MPV 11.3 fL (7.4-10.4) H 06/28/21 04:20 Neut % (Auto) 74.9 % 06/28/21 04:20 Lymph % (Auto) 9.5 % 06/28/21 04:20 [place] % (Auto) 12.7 % 06/28/21 04:20 Eos % (Auto) 2.1 % 06/28/21 04:20 Baso % (Auto) 0.5 % 06/28/21 04:20 Neut # (Auto) 4.36 10^3/uL (1.8-7.7) 06/28/21 04:20 Lymph # (Auto) 0.6 10^3/uL (0.8-4.8) L 06/28/21 04:20 [place] # (Auto) 0.7 10^3/uL (0.2-0.9) 06/28/21 04:20 Eos # (Auto) 0.1 10^3/uL (0.0-0.8) 06/28/21 04:20 Baso # (Auto) 0.0 10^3/uL (0.0-0.1) 06/28/21 04:20 Nucleated RBC % (auto) 0 % 06/28/21 04:20 Nucleated RBCs # 0.0 /100WBC 06/28/21 04:20 Sodium 134 mmol/L (136-145) L 06/28/21 04:20 Potassium 4.2 mmol/L (3.5-5.1) 06/28/21 04:20 Chloride 102 mmol/L (98-107) 06/28/21 04:20 Carbon Dioxide 23 mmol/L (22-29) 06/28/21 04:20 Anion Gap 13.2 (5-19) 06/28/21 04:20 BUN 23 mg/dL (8-23) 06/28/21 04:20 Creatinine 1.3 mg/dL (0.7-1.2) H 06/28/21 04:20 GFR Calculation Not Reportable 06/28/21 04:20 Glucose 117 mg/dL (65-115) H 06/28/21 04:20 Calculated Osmolality 283 mOsm/kg (285-295) L 06/28/21 04:20 Calcium 9.2 mg/dL (8.5-10.5) 06/28/21 04:20 Magnesium 1.8 mg/dL (1.7-2.3) 06/26/21 17:40 Total Bilirubin 0.9 mg/dL (0.15-1.2) 06/26/21 17:40 AST 30 U/L (0-40) 06/26/21 17:40 ALT 24 U/L (0-41) 06/26/21 17:40 Alkaline Phosphatase 128 IU/L (40-130) 06/26/21 17:40 Troponin T Baseline 66 ng/L (0-15) H 06/26/21 17:40 Troponin T 120 Minute 58.69 ng/L (0-15) H 06/26/21 19:45 Delta Troponin T -7.31 ABS# (0-10) L 06/26/21 19:45 Troponin T Hi Sens 6Hr 65.98 ng/L (0-15) H 06/26/21 23:38 Troponin T Hi Sens 6Hr Delta -0.02 ng/L (0-12) L 06/26/21 23:38 NT-Pro-B Natriuret Pep 2322 pg/mL (0-450) H 06/26/21 17:40 Total Protein 6.6 g/dL (6.6-8.7) 06/26/21 17:40 Albumin 4.3 g/dL (3.5-5.2) 06/26/21 17:40 Globulin 2.3 g/dL (1.3-4.6) 06/26/21 17:40 TSH 2.71 uIU/mL (0.27-4.20) 06/26/21 17:40 Vitals Last Vital Signs Temp 98.2 F 06/28/21 07:39 Pulse 48 L 06/28/21 07:39 Resp 18 06/28/21 07:39 BP 137/69 06/28/21 07:39 Pulse Ox 97 06/28/21 07:39 Discharge Plan Discharge Patient Disposition: Home Condition: Stable Prescriptions: New cephalexin 500 mg capsule 500 mg PO Q6H 7 Days Qty: 28 0RF amlodipine 5 mg Tablet 5 mg PO DAILY 30 Days Qty: 30 3RF Acetaminophen Extra Strength 500 mg tablet 500 mg PO Q6H PRN (Reason: pain) Qty: 14 0RF Continued aspirin 81 mg tablet,delayed release (DR/EC) 81 mg PO DAILY 0RF atorvastatin 40 mg tablet 40 mg PO DAILY 0RF cetirizine [All Day Allergy (cetirizine)] 10 mg tablet 10 mg PO DAILY PRN (Reason: Allergy Symptoms) 0RF cyanocobalamin (vitamin B-12) 1,000 mcg tablet 1,000 mcg PO DAILY 0RF Hold Instructions: Home Medication placed on hold at Doctor's office ferrous sulfate [FeroSul] 325 mg (65 mg iron) tablet 325 mg PO BID 0RF Hold Instructions: Home Medication placed on hold at Doctor's office levothyroxine 150 mcg capsule 150 mcg PO DAILY 0RF pantoprazole 40 mg tablet,delayed release (DR/EC) 40 mg PO BID 0RF magnesium 250 mg tablet 250 mg PO DIRECTED 0RF Hold Instructions: Home Medication placed on hold at Doctor's office Rx Instructions: take 250mg 5 times a week ascorbic acid (vitamin C) 1,000 mg tablet 1 g PO DAILY 0RF Hold Instructions: Home Medication placed on hold at Doctor's office coenzyme Q10 10 mg capsule 10 mg PO DAILY 0RF Hold Instructions: Home Medication placed on hold at Doctor's office cholecalciferol (vitamin D3) 50 mcg (2,000 unit) capsule 50 mcg PO DAILY 0RF Hold Instructions: Home Medication placed on hold at Doctor's office Multi For Him (no iron) 400-40 mcg Capsule 1 cap PO DAILY 0RF Changed metoprolol tartrate 25 mg tablet 25 mg PO BID Qty: 1 0RF Discharge Orders: Discharge Order (Routine); Ordered 06/28/21 Ordered By: Vladimir Yousif Referrals: AMY HAWKINS MD [Primary Care Provider] - 4-7 days (Please call [facility] and schedule an appointment to be seen by Dr. Hawkins within the next 7 days.) Vijay Moraes MD [Physician] - 1 month (Please call [facility] [place] Wednesday and schedule an appointment to be seen by Dr. Moraes within the next month.) Abigail John FNP [Nurse Practitioner] - 07/07/21 (For wound check and pacemaker interrogation) Discharge Diet: Regular Discharge Activity: Resume usual activity Patient Instructions: Bradycardia, A-fib (Atrial Fibrillation) (DC), Pacemaker (DC), Low Fat Diet (DC), Pacemaker (DC), Watchman Implant (DC), Opioid Safety, Post Pacemaker - Dimitry Activity Restrictions/Additional Instructions: No lifting the left arm above the shoulder until seen again. Wear shoulder immobilizer at night. Do not get the wound wet until seen again. Discharge Attestations Time Spent in Discharge Care*: greater than 30 min Specific Discharge Activities: educating patient, educating and/or supporting family/caregiver, discussing with pcp/other providers, discussing with patient case manager/social workers/dc planners, documenting/other paperwork and evaluating patient/reviewing data Quality Metrics Clinical Quality Measures [ No reported AMI, CVA or VTE this stay] Coding Level of Care Code Acute Chg FW DC note Diagnoses Acute on chronic diastolic (congestive) heart failure I50.33 Symptomatic bradycardia R00.1 Chronic atrial fibrillation I48.20 Benign essential HTN I10 Atherosclerosis of coronary artery of [place] heart without angina pectoris I25.10 Dyslipidemia E78.5
--- NOTE | 2021-06-28 11:15 | P.PN_ITS ---
Subjective Subjective: Saul had a pacemaker placed yesterday. He is anxious to go home this morning. No difficulties overnight. Vitals/I&O/Wt Last Vital Signs Temp 98.2 F 06/28/21 07:39 Pulse 48 L 06/28/21 07:39 Resp 18 06/28/21 07:39 BP 137/69 06/28/21 07:39 Pulse Ox 97 06/28/21 07:39 06/27/21 06/28/21 06/28/21 22:59 06:59 14:59 Intake Total 440 / 440 0 / 440 490 / 490 Balance 440 / 440 0 / 440 490 / 490 Weight last 48 hrs Weight 219 lb Weight 192 lb Physical Exam Narrative: GENERAL: In general he looks and feels well. HEENT: Exam within normal limits. [] NECK: Supple without jugular vein distention. The carotid upstroke is normal without bruits. [] BACK: Exam normal. [] LUNGS: Clear. [] HEART: Regular rate and rhythm. [] ABDOMEN: Benign without organomegaly or tenderness. [] EXTREMITIES: No edema. [] NEUROLOGIC: Exam normal. [] SKIN: Unremarkable. Pacemaker site flat and dry. Minimal blood through the bandage. No swelling. Expected amount of mild discomfort upon palpation. Data : 06/28/21 04:20 06/28/21 04:20 A&P Assessment and plan (1) Acute on chronic diastolic (congestive) heart failure: Status: Acute (2) Symptomatic bradycardia: Status: Acute (3) Chronic atrial fibrillation: Status: Acute (4) Benign essential HTN: Status: Acute (5) Dyslipidemia: Status: Acute (6) Atherosclerosis of coronary artery of [place] heart without angina pectoris: Status: Acute (7) S/P coronary artery bypass graft x 5: Status: Acute (8) Pacemaker: Status: Acute Plan He may be discharged today in his family instructions regarding the shoulder immobilizer, moving the left arm above the level of the shoulder, not getting the bandage wet and follow-up in a week in our clinic for wound check and pacemaker interrogation. 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
== END 2021-06-28 11:45 | disposition home or self-care (01) | DRG 242 ==
LOC: ER 19:15 → MEDSURG 20:25
PROVIDERS: Internal Medicine Cardiovascular Disease; Admitting Provider Internal Medicine; Emergency Provider Emergency Medicine; PCP Family Medicine; Visit Provider Internal Medicine
PROC: 0JH604Z Insertion of Pacemaker, Single Chamber into Chest Subcutaneous Tissue and Fascia, Open Approach (ICD-10-PCS; principal; 2021-06-27 12:30)
DX: R00.1 Bradycardia, unspecified (principal); I50.33 Acute on chronic diastolic (congestive) heart failure; I11.0 Hypertensive heart disease with heart failure; I25.10 Atherosclerotic heart disease of native coronary artery without angina pectoris; Z95.1 Presence of aortocoronary bypass graft; Z96.643 Presence of artificial hip joint, bilateral; I48.20 Chronic atrial fibrillation, unspecified; E78.5 Hyperlipidemia, unspecified; Z79.82 Long term (current) use of aspirin
CPT/HCPCS: 33207; 36415; 71045; 80048; 80053; 83735; 83880; 84443; 84484; 85025; 93005; 93306; 97110; 97165; 99214; 99285; C1769; C1786; C1894; C1898; J0461; J2250; J3010; J3370; J7030; J7050; Q9967

== ENCOUNTER → 2021-07-07 10:34 | Outpatient (BNVA) | payer MEDICARE, SELFPAY | PROVIDERS: PCP Family Medicine; Visit Provider Nurse Practitioner Family | DX: Z95.0 Presence of cardiac pacemaker (principal); I10 Essential (primary) hypertension | CPT/HCPCS: 99213; 99214 ==

== ENCOUNTER → 2021-08-01 09:15 | Outpatient (BNVA) | payer MEDICARE, SELFPAY | PROVIDERS: PCP Family Medicine; Visit Provider Internal Medicine | DX: Z45.010 Encounter for checking and testing of cardiac pacemaker pulse generator [battery] (principal) | CPT/HCPCS: 93279 ==

== ENCOUNTER → 2021-11-19 13:47 | Outpatient (BNVA) | payer MEDICARE, SELFPAY | PROVIDERS: PCP Family Medicine; Visit Provider Internal Medicine | DX: I48.91 Unspecified atrial fibrillation (principal); E78.2 Mixed hyperlipidemia; I25.10 Atherosclerotic heart disease of native coronary artery without angina pectoris; I49.5 Sick sinus syndrome; I11.0 Hypertensive heart disease with heart failure; I50.33 Acute on chronic diastolic (congestive) heart failure; Z95.0 Presence of cardiac pacemaker; I25.2 Old myocardial infarction | CPT/HCPCS: 99214 ==

== ENCOUNTER → 2022-02-13 09:38 | Outpatient (BNVA) | payer MEDICARE, SELFPAY | PROVIDERS: PCP Family Medicine; Visit Provider Internal Medicine | DX: Z45.010 Encounter for checking and testing of cardiac pacemaker pulse generator [battery] (principal) | CPT/HCPCS: 93279 ==

== ENCOUNTER → 2022-04-13 12:15 | Outpatient (BNVA) | payer MEDICARE, SELFPAY | PROVIDERS: PCP Family Medicine; Visit Provider Internal Medicine | DX: I48.91 Unspecified atrial fibrillation (principal); E78.2 Mixed hyperlipidemia; I25.10 Atherosclerotic heart disease of native coronary artery without angina pectoris; I49.5 Sick sinus syndrome; I11.0 Hypertensive heart disease with heart failure; I50.9 Heart failure, unspecified; Z95.0 Presence of cardiac pacemaker; I25.2 Old myocardial infarction | CPT/HCPCS: 99214 ==

== ENCOUNTER 2022-05-06 10:24 | Outpatient (CLI) | payer MEDICARE, SELFPAY ==
--- NOTE | 2022-05-06 10:15 | USCV_ITS ---
Saul Little Age: 86 Gender: M : 1935 Exam Date: 05/06/2022 10:35 Ordering Phys: Steven Lee M.D ([email or web address]) Technologist: Josie Oswald [place] [facility] [place]ication: AOrtic stenois, CAD, BP: 125 / 75 HR: 94 Rhythm: Sinus Technical Quality: Technically difficult study MEASUREMENTS (Male / Female) Normal Values 2D ECHO LV Diastolic Diameter PLAX 4.4 cm 4.2 - 5.9 / 3.9 - 5.3 cm LV Systolic Diameter PLAX 2.6 cm IVS Diastolic Thickness 1.6 cm 0.6 - 1.0 / 0.6 - 0.9 cm IVS Systolic Thickness 2.0 cm LVPW Diastolic Thickness 1.4 cm 0.6 - 1.0 / 0.6 - 0.9 cm LVPW Systolic Thickness 2.1 cm LVOT Diameter 2.0 cm LV Ejection Fraction 2D Teich 71.1 % LV Ejection Fraction MOD 2C 44.5 % LV Ejection Fraction 2C AL 46.5 % LA Diameter 4.8 cm LA Width 3.6 cm LA Height 5.4 cm RA Width 4.4 cm RA Height 5.9 cm Aorta at Sinotubular Diameter 3.0 cm IVC Diameter 1.6 cm M-MODE MV E Point Septal Separation 0.5 cm DOPPLER AV Peak Velocity 279.3 cm/s LVOT Peak Velocity 64.0 cm/s AV Area Cont Eq vti 0.7 cm squared AV Area Cont Eq pk 0.7 cm squared MV Peak Velocity 86.0 cm/s MV Area PHT 2.6 cm squared Mitral E to A Ratio 10.6 MV E' Velocity 89.0 cm/s TR Peak Velocity 223.0 cm/s TR Peak Gradient 19.9 mmHg Right Atrial Pressure 5.0 mmHg Pulmonary Artery Systolic Pressu 24.9 mmHg PV Peak Velocity 75.0 cm/s RV Acceleration Time 0.1 s RV Ejection Time 0.3 s RV AcT/ET 0.4 FINDINGS Left Ventricle Left ventricle is normal in size. LV systolic function is mildly reduced with EF of 45 to 50%. Mild global hypokinesis seen. Right Ventricle Normal in size and function Right Atrium Normal in size Left Atrium Normal in size Mitral Valve Grossly normal Aortic Valve Aortic valve is severely thickened and calcified. Doppler signals are ambiguous but aortic valve area is 0.8cm2 with mean gradient across the aortic valve of 19mmHg. This is consistent with moderate to severe aortic stenosis. Tricuspid Valve Mild tricuspid regurgitation. Pulmonary artery systolic pressure is normal Pulmonic Valve Not well-visualized Pericardium Normal Aorta Normal in size IVC Appears to be normal CONCLUSIONS LV is LV systolic function is mildly reduced with EF of 45 to 50%. Mild global hypokinesis seen. Aortic valve is severely thickened and calcified. Moderate to severe aortic stenosis. Mild tricuspid regurgitation Compared to prior echocardiogram from 2021, patient now has decreased LV systolic function and has moderate to severe aortic stenosis. Steven Lee MD (Electronically Signed) Final Date: 12 May 2022 18:14 S
== END 2022-05-06 10:25 | disposition home or self-care (01) ==
LOC: RAD 10:25
PROVIDERS: PCP Family Medicine; Visit Provider Internal Medicine
DX: R06.02 Shortness of breath (principal)
CPT/HCPCS: 93306

== ENCOUNTER → 2022-08-14 09:46 | Outpatient (BNVA) | payer MEDICARE, SELFPAY | PROVIDERS: PCP Family Medicine; Visit Provider Internal Medicine | DX: I48.91 Unspecified atrial fibrillation (principal); E78.2 Mixed hyperlipidemia; I25.10 Atherosclerotic heart disease of native coronary artery without angina pectoris; I11.0 Hypertensive heart disease with heart failure; I50.33 Acute on chronic diastolic (congestive) heart failure; Z95.0 Presence of cardiac pacemaker | CPT/HCPCS: 99214 ==

== ENCOUNTER → 2022-08-27 07:58 | Outpatient (BNVA) | payer MEDICARE, SELFPAY | PROVIDERS: PCP Family Medicine; Visit Provider Internal Medicine | DX: Z45.010 Encounter for checking and testing of cardiac pacemaker pulse generator [battery] (principal) | CPT/HCPCS: 93296 ==

== ENCOUNTER 2022-11-16 10:28 | Outpatient (CLI) | payer MEDICARE, SELFPAY ==
--- NOTE | 2022-11-16 11:00 | USCV_ITS ---
Saul Little Age: 87 Gender: M : 1935 Exam Date: 11/16/2022 10:44 Ordering Phys: Steven Lee M.D ([email or web address]) Technologist: Ponce Valladares Exam Location: [facility] [place] Indication: sob BP: 124 / 70 HR: 64 Rhythm: Sinus Technical Quality: Adequate MEASUREMENTS (Male / Female) Normal Values 2D ECHO LV Diastolic Diameter PLAX 4.1 cm 4.2 - 5.9 / 3.9 - 5.3 cm LV Systolic Diameter PLAX 2.4 cm IVS Diastolic Thickness 1.2 cm 0.6 - 1.0 / 0.6 - 0.9 cm IVS Systolic Thickness 2.0 cm LVPW Diastolic Thickness 1.2 cm 0.6 - 1.0 / 0.6 - 0.9 cm LVPW Systolic Thickness 2.2 cm LVOT Diameter 2.0 cm LV Ejection Fraction 2D Teich 74.6 % LV Ejection Fraction MOD 2C 50.0 % LV Ejection Fraction 2C AL 51.9 % LA Diameter 4.8 cm M-MODE Aortic Annulus Diameter 3.6 cm LA Ao Ratio MM 1.3 MV E Point Septal Separation 1.1 cm DOPPLER AV Peak Velocity 369.5 cm/s LVOT Peak Velocity 75.0 cm/s AV Area Cont Eq vti 0.6 cm squared AV Area Cont Eq pk 0.6 cm squared MV Area PHT 5.0 cm squared Mitral E to A Ratio 1.3 MV E' Velocity 47.5 cm/s Mitral E to MV E' Ratio 11.2 Mitral E to LV E' Lateral Ratio 8.9 Mitral E to LV E' Septal Ratio 14.9 TR Peak Velocity 345.0 cm/s TR Peak Gradient 47.6 mmHg TV Peak E Velocity 109.0 cm/s Right Atrial Pressure 3.0 mmHg Pulmonary Artery Systolic Pressu 50.6 mmHg RV Acceleration Time 0.1 s FINDINGS Left Ventricle Left ventricle is normal in size. LV systolic function is normal with EF of 50 to 55%. No regional wall motion abnormalities are seen. Right Ventricle Dilated and hypokinetic. Right Atrium Normal in size Left Atrium Normal in size Mitral Valve Structurally normal mitral valve. Mild mitral regurgitation. Aortic Valve Aortic valve is thickened and calcified. Severe aortic stenosis with aortic valve area 0.53 cm2 and mean gradient across aortic valve 31 mmHg. Tricuspid Valve Mild tricuspid regurgitation. RVSP is 50 to 55 mmHg. This is consistent to moderate pulmonary hypertension. Pulmonic Valve Not well visualized Pericardium Normal Aorta Normal in size IVC Appears to be normal CONCLUSIONS LV systolic function is normal with EF of 50-55% RV is dilated and hypokinetic Mild mitral regurgitation Severe aortic stenosis with aortic valve area 0.53 cm2 and mean gradient across aortic valve 31 mmHg. Mild tricuspid regurgitation Moderate pulmonary hypertension Compared to prior echocardiogram from 05/06/2022, patient's RV is hypokinetic, aortic valve stenosis has progressed and is severe aortic stenosis now and has moderate pulmonary hypertension Steven Lee MD (Electronically Signed) Final Date: 04 December 2022 12:53 S
== END 2022-11-16 10:29 | disposition home or self-care (01) ==
LOC: RAD 10:30
PROVIDERS: PCP Family Medicine; Visit Provider Internal Medicine
DX: I08.2 Rheumatic disorders of both aortic and tricuspid valves (principal); I27.20 Pulmonary hypertension, unspecified
CPT/HCPCS: 93306

== ENCOUNTER → 2022-11-24 15:08 | Outpatient (BNVA) | payer MEDICARE, SELFPAY | PROVIDERS: PCP Family Medicine; Visit Provider Internal Medicine | DX: Z45.010 Encounter for checking and testing of cardiac pacemaker pulse generator [battery] (principal) | CPT/HCPCS: 93296 ==

== ENCOUNTER 2022-12-30 07:18 | Outpatient (CLI) | payer MEDICARE, SELFPAY ==
[2022-12-30] VITALS (28 sets, daily range): BP systolic 109–156; BP diastolic 58–92; PULSE 59–82; RESP 10–19; TEMP 37; O2SAT 64–98; BMI 23.1
--- NOTE | 2022-12-30 07:30 | XACV_ITS ---
Exam Room: 2 Ht: 185 cm Wt: 79 kg BSA: 2.02 m2 Gender: Male : 1935 Any Known Allergies: Other Exam Priority: Routine Procedure(s): Procedure Description: Diagnostic procedure Procedure Description: Right Heart Catheterization Procedure Description: Venous Graft Catheterization Procedure Description: ENG Graft Catheterization Procedure Description: O2 saturation Procedure Description: Coronary Angiography Diagnostic Cath Status: Elective Diagnostic Findings * INDICATION: Severe aortic stenosis. * Distal Right Coronary Artery:90%. * Bypass grafts: SVG to RCA: Patent. SVG to OM: Patent. SVG to diagonal artery: Patent. ENG to LAD is patent.. * Aortic valve study: Aortic valve area: 0.8 cm2. Mean gradient across the aortic valve 28 mmHg. Heavily calcified aortic valve.. * Left Main: moderate 50% stenosis, ANASTASIIA: 3 flow. * Proximal Left Anterior Descending: total occlusion, ANASTASIIA: 0 flow. * Mid Circumflex: total occlusion, ANASTASIIA: 0 flow. * Coronary angiography shows right dominance. Conclusions 1. Patent 2. bypass graft. Severe [place] coronary artery disease. 3. Severe aortic stenosis. 4. Elevated right and left sided cardiac pressures. Moderate post capillary pulmonary hypertension. 5. Patient has prior CABG. Recommendations * We will refer patient for TAVR evaluation. * Outpatient cardiology follow up in 4 weeks. Interventional RX Recommendation: other cardiac therapy w/o CABG/PCI Diagnostic RX Recommendation: other cardiac therapy w/o CABG/PCI Pressures Phase:Rest AO : 77 / 50 ( 64 ) @ 9:56:00 AM 92 / 69 ( 81 ) @ 10:00:00 AM 103 / 75 ( 90 ) @ 10:02:00 AM 97 / 68 ( 83 ) @ 10:06:00 AM 132 / 62 ( 94 ) @ 10:23:00 AM LV : 166 / -4 / 12 @ 10:23:00 AM RV : 58 / 3 / 16 @ 9:49:00 AM PA : 56 / 24 ( 35 ) @ 9:47:00 AM RA : a wave = 16 v wave = 23 mean = 18 @ 9:49:00 AM PCW : a wave = 41 v wave = 39 mean = 30 @ 9:46:00 AM O2 Content Phase:Rest PA : O2 Content O2: 61.3 @ 10:00:00 AM Saturations Phase:Rest AO : 92 @ 9:56:00 AM PA : 61 @ 10:00:00 AM Cardiac Output Phase:Rest Ramana : 4 @ 9:42:56 AM Ramana Cardiac Index: 2 @ 9:42:56 AM Flow Phase:Rest Qp : 4 @ 9:42:56 AM Qs : 4 @ 9:42:56 AM Valves Phase:DefaultPhase AV : 34.0 @ 9:42:56 AM 34.0 @ 9:42:56 AM AV Mean Gradient: 26.0 @ 9:42:56 AM 26.0 @ 9:42:56 AM AV Flow: 181 @ 9:42:56 AM AV Area: 0.8 @ 9:42:56 AM AV Area Index: 0.39 @ 9:42:56 AM Clinical Evaluation EBL: 5mL-10mL Procedural Details Paco Callahan RN, SKI TOP TRIMMER was relieved by RT Compa(R) as monitoring person. Procedure Consent Obtained. Pre-Procedure Time Out. Identified patient by full name and date of as verbalized by the patient/guarantor. Does the consent match the physician's order: Yes. Accurate & Complete Informed Consent: Yes. Inpatient/Outpatient History & Physical on Chart: Yes. If H&P is completed, is and addenduem needed: No; If yes, is the addendum complete: N/A. Visualize and Verify Site with Patient/Guarantor: N/A. Relevant Radiology Images available: Yes. Pre-op teaching completed and patient verbalized understanding. The risks, benefits, and alternatives of sedation and/or procedure were discussed by physician. The patient agrees to continue. Procedure started. [facility] Clinical Fraility Score: 3: Managing Well. 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 Chest Pain Symptom Assessment: Atypical Angina. Correct patient, site and procedure confirmed by cath team. PERRLA. Strong, equal hand knockout man bilaterally. Lungs clear x 5 lobes. IV Site on Arrival: 20 gauge in the left anticubital. IV Site on Arrival: 18 gauge in the right anticubital. IV Fluids: 0.9% NaCl at KVO. 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 Pre Procedural Pulses: bilateral dorsalis pedis was Doppled. Pre Procedural Pulses: bilateral posterior tibial was Doppled. Pre Procedural Pulses: bilateral radial was 3+. right groin was prepped with chloroprep then draped in the usual sterile fashion. right brachial was prepped with chloroprep then draped in the usual sterile fashion. Baseline sample Acquired. HR: 68 BPM. Physician arrived. Lidocaine 1% infiltrated to the right brachial. Sheath wire inserted through the IV catheter. IV catheter removed OTW. [place]-Francisca MON catheter inserted. [place] wire inserted through the [place] catheter. Pressure measurements obtained. Oximetry samples were obtained. Normal venous range: 60-85%. Normal arterial range: 95-100%. [place]-Francisca out. Lidocaine 1% infiltrated to the right groin. Arterial access obtained with micropuncture set. Respiratory called to run O2 saturations. Oxygen started at 2liters/min via nasal canula. A 5 [place] JL4 catheter in over wire. Multiple views taken of left coronary artery. Catheter removed over the standard wire. A 5 [place] JR4 catheter in over wire. Multiple views taken of right coronary artery. SVG's to RCA visualized and patent. SVG's to OM visualized and patent. SVG's to Diaganol visualized and patent. Catheter removed over the exchange wire. A 5 citizen [place] IM catheter in over wire. ENG to LAD visualized. Catheter removed over the glide wire. Inventory is TR Glidewire Angled Stiff Shaft .035 260cm. A 5 citizen [place] AL1 catheter in over wire. Glidewire removed. Exchange wire inserted. [place] catheter inserted OTW. Gradient taken: LV 166/-5,12; AO 132/62(94); Mean: 26mmHg, Peak to Peak: 34mmHg, SEP: 22sec/min; HR: 76 BPM; SpO2: 95%. Catheter removed over the exchange wire. A Right femoral angiogram was performed to determine safe placement of closure device. Lidocaine 1% infiltrated to the right groin. A Mynx was successful obtaining hemostatsis at the Right Femoral artery insertion site. A Manual Compression was successful obtaining hemostatsis at the Right Brachial Vein insertion site. Physician scrubbed out. Post Procedure: Pulses reassessed and unchanged. PERRLA. Strong, equal hand knockout man bilaterally. No VTE prophylaxis required. Medication's Wasted: Heparin = 3500 units. Medication's Wasted: Other = Fentanyl 75 mcg Versed 1 mg. Total IV fluids: 47 mL. Complications: None. Estimated blood loss: 5mL-10mL. Responsiveness - Normal response to verbal stimuli; alert and oriented, PERRLA. Airway - Unaffected, no intervention required; spontaneous ventilation. Circulation: W/N/L, pulses unchanged. Nausea/Vomiting: No. Procedure completed. Vital chart was stopped. Patient transferred by bed to CPRU. Access Site Site: Right Brachial Vein Sheath Size: 6 Fr Hemostasis Method: Manual Compression Hemostasis Success: Successful Site: Right Femoral artery Sheath Size: 6 Fr Hemostasis Method: Mynx Hemostasis Success: Successful Procedure Medications Start: 8:31 AM Stop: 8:31 AM Medication: Benadryl Amount: 50 mg Route: I.V. Start: 8:31 AM Stop: 8:31 AM Medication: Versed Amount: 1 mg Route: I.V. Start: 8:51 AM Stop: 8:51 AM Medication: Versed Amount: 1 mg Route: I.V. Start: 8:51 AM Stop: 8:51 AM Medication: Fentanyl Amount: 25 mcg Route: I.V. Start: 9:15 AM Stop: 9:15 AM Medication: Heparin Amount: 1500 units Route: I.V. Start: 9:15 AM Stop: 9:15 AM Medication: Versed Amount: 1 mg Route: I.V. I, the attending physician, have reviewed and verified all procedure medications. Yes, all medications given per verbal order History/Risk Factors Hypertension: Yes Dyslipidemia: Yes Peripheral Arterial Disease (PAD): No Myocardial Infarction (WA): No Obesity: No Renal Disease: No Tobacco Use: Never Prior Interventions PCI: No CABG: Yes Valve Surgery: No Report Signatures Finalized by Steven Lee MD on 01/05/2023 09:56 AM
[2022-12-30 07:54] LABS: Basophils % 0.8 %; Eosinophils # 0.3 10^3/uL (0.0-0.8); Eosinophils % 6.3 %; Hematocrit 39.9 % (37-53); Lymphocytes % 18.4 %; Mean Corpuscular HGB Conc 33.8 g/dL (30-55); Mean Corpuscular Hemoglobin 32.8 pg (27-33); Mean Corpuscular Volume 96.8 fl (82-101); Mean Platelet Volume 10.8 fL (7.4-10.4); Monocytes # 0.7 10^3/uL (0.2-0.9); Neutrophils # 3.19 10^3/uL (1.8-7.7); Neutrophils % 60.3 %; Nucleated Red Blood Cells % 0 %; Platelet Count 188 10^3/cmm (157-399); Red Blood Count 4.12 10^6/uL (3.85-5.65); Red Cell Distribution Width 14.5 % (12.1-15.1); White Blood Count 5.28 10^3/uL (3.29-11.43)
[2022-12-30 08:15] LABS: Anion Gap 15.3 (5-19); Blood Urea Nitrogen 19 mg/dL (8-23); Calcium 9.4 mg/dL (8.5-10.5); Carbon Dioxide 28 mmol/L (22-29); Chloride 99 mmol/L (98-107); Glucose 114 mg/dL (65-115); Osmolality Calculated 289 mOsm/kg (285-295); Potassium 4.3 mmol/L (3.5-5.1); Sodium 138 mmol/L (136-145)
--- NOTE | 2022-12-30 08:22 | P.HP_ITS ---
Same Day Surgery H&P Indication for Procedure/HPI DATE OF PROCEDURE: December 30, 2022 CHIEF COMPLAINT/INDICATIONFOR SURGICAL PROCEDURE: Severe aortic stenosis PREOP DIAGNOSIS: Severe aortic stenosis PLANNED PROCEDURE: Operation Date: 12/30/22 08:30 Proposed Procedures p Right and Left Heart Cath 93397,I35.0,R93.1(Bilateral) - Steven Lee M.D Possible percutaneous coronary intervention 87-year-old man with past medical history of atrial fibrillation, has pacemaker, intolerant to anticoagulation is here for right and left heart cath with possible percutaneous coronary intervention as he was found to have severe aortic stenosis based on echo findings. Has dyspnea on exertion. Also has lower extremity edema. ROS CONSTITUTIONAL: No fever chills weight loss or gain or night sweats. [] HEENT: Normocephalic, atraumatic.[] RESPIRATORY: No cough, sputum, hemoptysis or wheezing.[] CARDIOVASCULAR: Has shortness of breath. GI: no nausea vomiting diarrhea. [] VALIDATION SCIENTIST: No numbness, tingling, weakness or loss of function in any part of the body. [] MUSCULOSKELETAL: No knee or joint pain or rashes. [] Medications/Allergies* Home Medications Medication Instructions Recorded Confirmed Type ascorbic acid (vitamin C) 1,000 mg 1 g PO DAILY 05/20/21 12/29/22 History tablet aspirin 81 mg tablet,delayed 81 mg PO DAILY 05/20/21 12/29/22 History release cetirizine 10 mg tablet (All Day 10 mg PO DAILY PRN Allergy Symptoms 05/20/21 12/29/22 History Allergy (cetirizine)) cholecalciferol (vitamin D3) 50 50 mcg PO DAILY 05/20/21 12/29/22 History mcg (2,000 unit) capsule coenzyme Q10 10 mg capsule 10 mg PO DAILY 05/20/21 12/29/22 History cyanocobalamin (vitamin B-12) 1,000 mcg PO DAILY 05/20/21 12/29/22 History 1,000 mcg tablet ferrous sulfate 325 mg (65 mg 325 mg PO BID 05/20/21 12/29/22 History iron) tablet (FeroSul) levothyroxine 150 mcg capsule 150 mcg PO DAILY 05/20/21 12/29/22 History magnesium 250 mg tablet 250 mg PO DIRECTED 05/20/21 12/29/22 History tsmnmzqxygoy-rcdzizym-atxia acid 1 cap PO DAILY 06/26/21 12/29/22 History 400 mcg-vitamin K 40 mcg capsule (Multi For Him (no iron)) pantoprazole 40 mg tablet,delayed 40 mg PO DAILY 11/19/21 12/29/22 History release furosemide 20 mg tablet 20 mg PO DAILY PRN Edema 08/14/22 12/29/22 History atorvastatin 20 mg tablet 20 mg PO DAILY 12/29/22 12/29/22 History potassium chloride 10 mEq 10 meq PO DAILY PRN When taking 12/29/22 12/29/22 History tablet,extended release Lasix Allergies/Adverse Reactions Allergy/AdvReac Type Severity Reaction Status Date / Time Alpha-Gal Allergy Severe Unknown Verified 12/29/22 10:39 (Fimyfeymu-Apuoo-2,3-Gala [Kclbsyhdc-Iousj-9,3-Galactose (Alph] Penicillins Allergy Unknown Unknown Verified 12/29/22 10:39 Current Medications: Generic Name Dose Route Start Last Admin Trade Name Freq PRN Reason Stop Dose Admin Sodium Chloride 1,000 mls @ 50 mls/hr 12/30/22 07:30 12/30/22 08:21 Sodium Chloride 0.9% IV 12/31/22 03:29 Not Given .Q20H ONE Pertinent History/Comorbid Conditions* Medical History (Updated 04/13/22 @ 13:55 by Steven Lee M.D) Acute on chronic congestive heart failure Acute on chronic diastolic (congestive) heart failure 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 Allergic rhinitis Aortic valve stenosis Asthma Atherosclerosis of coronary artery of [place] heart without angina pectoris Atrial fibrillation Benign essential HTN Bilateral cataracts Chronic atrial fibrillation Coronary arteriosclerosis Coronary artery disease Dyslipidemia GERD (gastroesophageal reflux disease) Iron deficiency anemia CT (myocardial infarction) Mixed hyperlipidemia Pacemaker Prediabetes Symptomatic bradycardia Symptomatic bradycardia Surgical History (Updated 07/07/21 @ 11:31 by MAYE Cash) H/O heart surgery MARIBELL removal H/O maze procedure History of left hip replacement History of right hip replacement S/P coronary artery bypass graft x 5 Status post placement of cardiac pacemaker Family History (Updated 05/20/21 @ 09:38 by Akua Soriano RN) Hypertension Mother Social History Smoking and tobacco status: never smoked Alcohol intake: never Substance/Drug Use: never Pertinent Exam Findings alert, oriented x 3, clear to auscultation bilaterally and regular rate & rhythm Grade 3/6 systolic murmur Conscious Sedation Assessment PATIENT ASSESSED PRIOR TO SEDATION, WITH NO CHANGE NOTED: Yes AIRWAY EVAL/ANESTHESIA PLAN: normal airway, see other exam findings, ASA IV, Local Anesthesia, Risks, benefits & alternatives of sedation and/or procedure discussed and Patient agrees to continue as planned ADDITIONAL INFORMATION: Moderate sedation Recommendations Surgery/Procedure today (Right heart cath/Left heart cath with possible percutaneous coronary intervention) Coding Level of Care Code Acute Code for Chg Fwd Diagnoses
[2022-12-30 09:11] LABS: Arterial Blood Gas Hematocrit 37.7 % (42-52); Blood Gas Operator Identificat CAK; Blood Gas Sample Type Not specified; Carboxyhemoglobin 1.2 %THgb (0.4-20.1); HGB O2 Sat 60.4 % (95-100); Methemoglobin 0.2 % (0.4-1.5); Total Hemoglobin 12.3 g/dL (14-18)
[2022-12-30 09:12] LABS: Arterial Blood Gas Hematocrit 36.7 % (42-52); Blood Gas Operator Identificat CAK; Blood Gas Sample Type Not specified; Carboxyhemoglobin 1.2 %THgb (0.4-20.1); HGB O2 Sat 91.2 % (95-100)
--- NOTE | 2022-12-30 17:30 | PC.NURSE ---
Discharge Note Patient discharged to [home] via [w/c to POV] accompanied by []. Discharge instructions reviewed with patient and/or admissions representative. Mobile pharmacy medications and/or prescriptions provided. Belongings/home medications returned.
== END 2022-12-30 17:30 | disposition home or self-care (01) ==
LOC: CCL 07:19 → CSU 11:06
PROVIDERS: PCP Family Medicine; Visit Provider Internal Medicine
DX: I35.0 Nonrheumatic aortic (valve) stenosis (principal); R93.1 Abnormal findings on diagnostic imaging of heart and coronary circulation; I48.20 Chronic atrial fibrillation, unspecified; Z95.0 Presence of cardiac pacemaker; Z79.82 Long term (current) use of aspirin; I11.0 Hypertensive heart disease with heart failure; I50.43 Acute on chronic combined systolic (congestive) and diastolic (congestive) heart failure; I25.10 Atherosclerotic heart disease of native coronary artery without angina pectoris; K21.9 Gastro-esophageal reflux disease without esophagitis; I25.2 Old myocardial infarction; E78.2 Mixed hyperlipidemia; Z95.1 Presence of aortocoronary bypass graft
CPT/HCPCS: 36415; 80048; 82810; 85025; 93460; 96361; 96365; 99152; 99153; C1751; C1760; C1769; C1887; C1894; J1200; J1644; J2250; J3010; J3490; J7030; Q9967

== ENCOUNTER → 2023-01-07 12:41 | Outpatient (BNVA) | payer MEDICARE, SELFPAY | PROVIDERS: PCP Family Medicine; Visit Provider Nurse Practitioner Family | DX: I35.0 Nonrheumatic aortic (valve) stenosis (principal) | CPT/HCPCS: 36415; 80048; 99214 ==

== ENCOUNTER → 2023-05-27 13:54 | Outpatient (BNVA) | payer MEDICARE, SELFPAY | PROVIDERS: PCP Family Medicine; Visit Provider Internal Medicine | DX: I48.91 Unspecified atrial fibrillation (principal); E78.2 Mixed hyperlipidemia; I25.10 Atherosclerotic heart disease of native coronary artery without angina pectoris; I11.0 Hypertensive heart disease with heart failure; I50.33 Acute on chronic diastolic (congestive) heart failure; Z95.0 Presence of cardiac pacemaker | CPT/HCPCS: 99214 ==

== ENCOUNTER → 2024-02-23 14:42 | Outpatient (BNVA) | payer MEDICARE, SELFPAY | PROVIDERS: PCP Family Medicine; Visit Provider Internal Medicine | DX: I48.91 Unspecified atrial fibrillation (principal); E78.2 Mixed hyperlipidemia; I25.10 Atherosclerotic heart disease of native coronary artery without angina pectoris; Z95.0 Presence of cardiac pacemaker; I49.5 Sick sinus syndrome; I11.0 Hypertensive heart disease with heart failure; I50.33 Acute on chronic diastolic (congestive) heart failure | CPT/HCPCS: 99214 ==

== ENCOUNTER → 2024-06-16 10:42 | Outpatient (BNVA) | payer MEDICARE, SELFPAY | PROVIDERS: PCP Family Medicine; Visit Provider Internal Medicine | DX: Z45.018 Encounter for adjustment and management of other part of cardiac pacemaker (principal) | CPT/HCPCS: 93279 ==

== ENCOUNTER 2024-06-29 17:43 | Emergency (ER) | payer MEDICARE, SELFPAY ==
[2024-06-29 17:45] VITALS: BP 143/84; PULSE 76; TEMP 36.3; O2SAT 93; BMI 24.4
[2024-06-29 20:04] LABS: Basophils % 0.2 %; Eosinophils % 0.2 %; Hematocrit 37.3 % (37-53); Lymphocytes # 0.2 10^3/uL (0.8-4.8); Lymphocytes % 4.2 %; Mean Corpuscular HGB Conc 31.9 g/dL (30-55); Mean Corpuscular Hemoglobin 32.1 pg (27-33); Mean Corpuscular Volume 100.5 fl (82-101); Mean Platelet Volume 11.3 fL (7.4-10.4); Monocytes # 0.2 10^3/uL (0.2-0.9); Monocytes % 4.2 %; Neutrophils # 3.93 10^3/uL (1.8-7.7); Nucleated Red Blood Cells % 0 %; Platelet Count 137 10^3/cmm (157-399); Red Blood Count 3.71 10^6/uL (3.85-5.65); Red Cell Distribution Width 18.2 % (12.1-15.1); White Blood Count 4.32 10^3/uL (3.29-11.43)
[2024-06-29 20:22] LABS: Troponin(5th) Baseline 62 ng/L (0-15)
[2024-06-29 20:38] LABS: Alanine Aminotransferase 23 U/L (0-41); Albumin Level 4.2 g/dL (3.5-5.2); Alkaline Phosphatase 204 U/L (40-130); Anion Gap 19.7 (5-19); Aspartate Amino Transferase 41 U/L (0-40); Blood Urea Nitrogen 29 mg/dL (8-23); Calcium 8.9 mg/dL (8.5-10.5); Carbon Dioxide 23 mmol/L (22-29); Chloride 100 mmol/L (98-107); Creatinine Clr Calc Pharmacy 45.2811; Globulin 4.1 g/dL (1.3-4.6); Glucose 194 mg/dL (65-115); Osmolality Calculated 297 mOsm/kg (285-295); Potassium 4.7 mmol/L (3.5-5.1); Sodium 138 mmol/L (136-145); Total Bilirubin 1.1 mg/dL (0.15-1.2); Total Protein 8.3 g/dL (6.6-8.7)
[2024-06-29 20:41] LABS: NT Pro B Type Natriuretic Pept 1681 pg/mL (0-450)
--- NOTE | 2024-06-29 21:24 | ECG_ITS ---
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1935 Requested By: Jessica Andrade Order Number: [id number] Douglas MD: MEET BISWAS Measurements Intervals [place] Rate: 78 P: 0 MD: 0 QRS: 269 QRSD: 157 T: 13 QT: 425 QTc: 485 Interpretive Statements ATRIAL FIBRILLATION RIGHT AXIS DEVIATION [QRS AXIS > 100] RIGHT BUNDLE BRANCH BLOCK [120+ ms QRS DURATION, UPRIGHT V1, 40+ ms S IN I/aVL/V4/V5/V6] ANTEROSEPTAL MYOCARDIAL INFARCTION , OF INDETERMINATE AGE [40+ ms Q WAVE IN V1-V4] Compared to ECG 06/28/2021 05:12:43 Right-axis deviation now present Right bundle-branch block now present Myocardial infarct finding now present Ventricular-paced complex(es) or rhythm no longer present Electronically Signed On 07-02-2024 22:03:32 CDT by MEET BISWAS [email or web address]
--- NOTE | 2024-06-29 21:30 | XRR_ITS ---
PROCEDURE INFORMATION: Exam: XR Chest Exam date and time: 06/29/2024 9:31 PM Age: 88 years old Clinical indication: Shortness of breath TECHNIQUE: Imaging protocol: Radiologic exam of the chest. Views: 1 view. COMPARISON: CR XR chest 1V [id number] 06/28/2021 6:17 AM FINDINGS: Tubes, catheters and devices: Single lead cardiac pacemaker device overlying the left chest wall. Lungs: Compressive atelectasis of the lung bases greater on the left however can not exclude infiltrates. Pleural spaces: Moderate left and small right pleural effusion. No sizable pneumothorax. Heart/Mediastinum: Unremarkable. No cardiomegaly. Bones/joints: Median sternotomy wires. XR/XR chest 1V portable [id number] IMPRESSION: As above.
--- NOTE | 2024-06-29 21:42 | W.ED.SOB ---
HPI - SOB/Dyspnea General: Chief Complaint: Shortness of Breath/Dyspnea Stated Complaint: Dr Mercado sent Time Seen by Provider: 06/29/24 21:38 History of Present Illness: HPI Narrative: 88-year-old man with a history of atrial fibrillation, pacemaker placement, aortic valve repair, coronary artery disease status post CABG and congestive heart failure who presents to the emergency room with concern for pleural effusion. He says that he had had lab work and a CTA done by his primary care provider and apparently they contacted Dr. Lee's office and were told to go to the emergency room. He has been a little more short of breath than usual. He says his swelling was doing better until today whenever he had been sitting with his legs down for several hours in the emergency room and in clinic and he has more edema at this point. No orthopnea. No fevers. He says he did have a recent upper respiratory infection that he has recovered from since. Cough is improved. Related Data Home Medications ?Medication ?Instructions ?Recorded ?Confirmed ascorbic acid (vitamin C) 1,000 mg 1 g PO DAILY 05/20/21 02/23/24 tablet aspirin 81 mg tablet,delayed 81 mg PO DAILY 05/20/21 02/23/24 release cetirizine 10 mg tablet (All Day 10 mg PO DAILY PRN Allergy Symptoms 05/20/21 02/23/24 Allergy (cetirizine)) cholecalciferol (vitamin D3) 50 50 mcg PO DAILY 05/20/21 02/23/24 mcg (2,000 unit) capsule coenzyme Q10 10 mg capsule 10 mg PO DAILY 05/20/21 02/23/24 cyanocobalamin (vitamin B-12) 1,000 mcg PO DAILY 05/20/21 02/23/24 1,000 mcg tablet ferrous sulfate 325 mg (65 mg 325 mg PO BID 05/20/21 02/23/24 iron) tablet (FeroSul) levothyroxine 150 mcg capsule 150 mcg PO DAILY 05/20/21 02/23/24 magnesium 250 mg tablet 250 mg PO DIRECTED 05/20/21 02/23/24 xhvqjlkplarx-ygnpquaf-yqsni acid 1 cap PO DAILY 06/26/21 02/23/24 400 mcg-vitamin K 40 mcg capsule (Multi For Him (no iron)) pantoprazole 40 mg tablet,delayed 40 mg PO DAILY 11/19/21 02/23/24 release furosemide 20 mg tablet 20 mg PO DAILY PRN Edema 08/14/22 02/23/24 atorvastatin 20 mg tablet 20 mg PO DAILY 12/29/22 02/23/24 potassium chloride 10 mEq 10 meq PO DAILY PRN When taking 12/29/22 02/23/24 tablet,extended release Lasix vit cap PO 05/27/23 02/23/24 C,E,zinc,Ln-kxpku-7-lutein-zeaxanthin 250 mg-2.5 mg-0.5 mg capsule Previous Rx's ?Medication ?Instructions ?Recorded acetaminophen 500 mg tablet 500 mg PO Q6H PRN pain #14 tabs 06/28/21 (Acetaminophen Extra Strength) metoprolol succinate 25 mg 25 mg PO DAILY #90 tabs 11/19/21 tablet,extended release 24 hr Allergies Allergy/AdvReac Type Severity Reaction Status Date / Time Alpha-Gal Allergy Severe Unknown Verified 06/29/24 17:57 (Wsbztkoha-Dzfil-0,3-Gala (Afqspoxgh-Oxrqf-1,3-Galactose (Alph) Penicillins Allergy Unknown Unknown Verified 06/29/24 17:57 Review of Systems Narrative: Constitutional symptoms: Negative except as documented in HPI. Skin symptoms: Negative except as documented in HPI. Eye symptoms: Negative except as documented in HPI. ENMT symptoms: Negative except as documented in HPI. Respiratory symptoms: Negative except as documented in HPI. Cardiovascular symptoms: Negative except as documented in HPI. Gastrointestinal symptoms: Negative except as documented in HPI. Genitourinary symptoms: Negative except as documented in HPI. Musculoskeletal symptoms: Negative except as documented in HPI. Neurologic symptoms: Negative except as documented in HPI. Psychiatric symptoms: Negative except as documented in HPI. Endocrine symptoms: Negative except as documented in HPI. 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 Iron deficiency anemia GERD (gastroesophageal reflux disease) NV (myocardial infarction) Coronary arteriosclerosis Aortic valve stenosis Allergic rhinitis Bilateral cataracts Prediabetes Asthma Acute on chronic congestive heart failure Symptomatic bradycardia Coronary artery disease Mixed hyperlipidemia Atrial fibrillation Surgical History Status post placement of cardiac pacemaker H/O heart surgery MARIBELL removal H/O maze procedure History of right hip replacement History of left hip replacement S/P coronary artery bypass graft x 5 Family History Mother Hypertension Social History Smoking and tobacco/nicotine status: never used tobacco/nicotine Alcohol intake: never Substance/Drug Use: never Physical Exam Narrative: EXAM NARRATIVE: General: Alert, no acute distress. Skin: Warm, dry. Head: Normocephalic, atraumatic. Neck: Supple, trachea midline. Eye: Extraocular movements are intact. Ears, nose, mouth and throat: mucosa moist. Cardiovascular: Regular, Normal peripheral perfusion. Respiratory: Lungs are clear to auscultation, respirations are non-labored, breath sounds are equal, Symmetrical chest wall expansion. 2+ pitting tibial edema. Gastrointestinal: Soft, Nontender, Non distended Musculoskeletal: Normal ROM, no deformity. Neurological: Alert and oriented, No focal neurological deficit observed. Psychiatric: Cooperative, appropriate mood & affect. Course Vital Signs: Vital signs: Vital Signs Temperature 97.4 F L 06/29/24 17:45 Pulse Rate 76 06/29/24 17:45 Blood Pressure 143/84 06/29/24 17:45 Pulse Oximetry 93 06/29/24 17:45 Oxygen Delivery Me thod Room Air 06/29/24 17:45 MDM - SOB/Dyspnea Medical Decision Making Differential diagnosis for patient with shortness of breath includes but is not limited to and based on the above HPI, review of systems and physical exam: Pneumonia. Bronchitis. Asthma or COPD with acute exacerbation. Acute coronary syndrome / NV. Pulmonary embolism. Anxiety. Congestive heart failure. Viral infections including influenza and Covid-19. Atrial fibrillation. Anxiety. Pleural effusion. Pneumothorax. Orders placed to evaluate differential diagnosis based on the above differential, HPI and physical exam EKG: Time 2140. Rate 78. Atrial fibrillation with controlled rate, No ST-T changes, no ectopy, This was reviewed and interpreted by myself the ER physician at 2144 Chest x-ray: Small left pleural effusion. This was reviewed and interpreted by myself the emergency room physician. I also reviewed the radiology report. Lab Review: Laboratory results were reviewed and interpreted by myself the emergency room physician. No leukocytosis. No anemia. BUN and creatinine are 29 and 1.3 quite similar to his baseline. proBNP is a bit below his baseline. Initial troponin is 62. This is also at his baseline. He is had no chest pain. I reviewed the patient's medical record. Reexamination: Patient remained stable. No increased work of breathing. No altered mental status. No focal motor deficits. Consultation: I spoke Dr. Lee. He was not aware that the patient had been sent to the emergency room. PCP had planned on increasing his Lasix for a few days. Given that he is had some extra swelling today from being up all day I am giving him a dose of IV Lasix here. I discussed all this with the patient he is comfortable going home. Assessment and plan: Edema Pleural effusion Congestive heart failure ? 40 mg IV Lasix in the emergency room - Discharged home - Discussed plan with patient. Answered any questions. - Evaluation and treatment of this problem were appropriate in the emergency setting. Lab Data 06/29/24 19:47 06/29/24 19:47 Labs/Radiology: Laboratory Results WBC 4.32 10^3/uL (3.29-11.43) 06/29/24 19:47 RBC 3.71 10^6/uL (3.85-5.65) L 06/29/24 19:47 Hgb 11.90 g/dL (11.27-16.99) 06/29/24 19:47 Hct 37.3 % (37-53) 06/29/24 19:47 MCV 100.5 fl (82-101) 06/29/24 19:47 MCH 32.1 pg (27-33) 06/29/24 19:47 MCHC 31.9 g/dL (30-55) 06/29/24 19:47 RDW 18.2 % (12.1-15.1) H 06/29/24 19:47 Plt Count 137 10^3/cmm (157-399) L 06/29/24 19:47 MPV 11.3 fL (7.4-10.4) H 06/29/24 19:47 Neut % (Auto) 91.0 % 06/29/24 19:47 Lymph % (Auto) 4.2 % 06/29/24 19:47 [place] % (Auto) 4.2 % 06/29/24 19:47 Eos % (Auto) 0.2 % 06/29/24 19:47 Baso % (Auto) 0.2 % 06/29/24 19:47 Neut # (Auto) 3.93 10^3/uL (1.8-7.7) 06/29/24 19:47 Lymph # (Auto) 0.2 10^3/uL (0.8-4.8) L 06/29/24 19:47 [place] # (Auto) 0.2 10^3/uL (0.2-0.9) 06/29/24 19:47 Eos # (Auto) 0.0 10^3/uL (0.0-0.8) 06/29/24 19:47 Baso # (Auto) 0.0 10^3/uL (0.0-0.1) 06/29/24 19:47 Nucleated RBC % (auto) 0 % 06/29/24 19:47 Nucleated RBCs # 0.0 /100WBC 06/29/24 19:47 Sodium 138 mmol/L (136-145) 06/29/24 19:47 Potassium 4.7 mmol/L (3.5-5.1) 06/29/24 19:47 Chloride 100 mmol/L (98-107) 06/29/24 19:47 Carbon Dioxide 23 mmol/L (22-29) 06/29/24 19:47 Anion Gap 19.7 (5-19) H 06/29/24 19:47 BUN 29 mg/dL (8-23) H 06/29/24 19:47 Creatinine 1.3 mg/dL (0.7-1.2) H 06/29/24 19:47 GFR Calculation Not Reportable 06/29/24 19:47 Glucose 194 mg/dL (65-115) H 06/29/24 19:47 Calculated Osmolality 297 mOsm/kg (285-295) H 06/29/24 19:47 Calcium 8.9 mg/dL (8.5-10.5) 06/29/24 19:47 Total Bilirubin 1.1 mg/dL (0.15-1.2) 06/29/24 19:47 AST 41 U/L (0-40) H 06/29/24 19:47 ALT 23 U/L (0-41) 06/29/24 19:47 Alkaline Phosphatase 204 U/L (40-130) H 06/29/24 19:47 Troponin T Baseline 62 ng/L (0-15) H 06/29/24 19:47 NT-Pro-B Natriuret Pep 1681 pg/mL (0-450) H 06/29/24 19:47 Total Protein 8.3 g/dL (6.6-8.7) 06/29/24 19:47 Albumin 4.2 g/dL (3.5-5.2) 06/29/24 19:47 Globulin 4.1 g/dL (1.3-4.6) 06/29/24 19:47 All radiology interpretation(s) finalized by discharge Discharge Plan Discharge Patient Disposition: Home Clinical Impression: Edema, Pleural effusion Condition: Stable Prescriptions: No Action metoprolol succinate 25 mg tablet extended release 24 hr 25 mg PO DAILY Qty: 90 3RF aspirin 81 mg tablet,delayed release (DR/EC) 81 mg PO DAILY cetirizine [All Day Allergy (cetirizine)] 10 mg tablet 10 mg PO DAILY PRN (Reason: Allergy Symptoms) cyanocobalamin (vitamin B-12) 1,000 mcg tablet 1,000 mcg PO DAILY ferrous sulfate [FeroSul] 325 mg (65 mg iron) tablet 325 mg PO BID levothyroxine 150 mcg capsule 150 mcg PO DAILY magnesium 250 mg tablet 250 mg PO DIRECTED Rx Instructions: take 250mg 5 times a week ascorbic acid (vitamin C) 1,000 mg tablet 1 g PO DAILY coenzyme Q10 10 mg capsule 10 mg PO DAILY cholecalciferol (vitamin D3) 50 mcg (2,000 unit) capsule 50 mcg PO DAILY pantoprazole 40 mg tablet,delayed release (DR/EC) 40 mg PO DAILY furosemide 20 mg tablet 20 mg PO DAILY PRN (Reason: Edema) vit C,E,Zn,Uy--bhq-zeax 250-2.5-0.5 mg capsule PO Multi For Him (no iron) 400-40 mcg Capsule 1 cap PO DAILY acetaminophen [Acetaminophen Extra Strength] 500 mg tablet 500 mg PO Q6H PRN (Reason: pain) Qty: 14 0RF atorvastatin 20 mg Tablet 20 mg PO DAILY potassium chloride 10 mEq tablet extended release 10 meq PO DAILY PRN (Reason: When taking Lasix) Discharge Orders: Discharge ED (Routine); Ordered 06/29/24 Ordered By: Jessica Osborne Referrals: AMY DENNEY MD [Primary Care Provider] - Discharge Diet: Usual diet Discharge Activity: Increase activity as tolerated Patient Instructions: Pleural Effusion (DC), Opioid Safety, Pain Management Activity Restrictions/Additional Instructions: Thank you for choosing [facility] for your healthcare needs today. Please realize this is an emergency room and that we are providing you with a medical screening exam and this may not be complete and all inclusive of all the testing and or work up that you may need to determine your ailment or severity of your illness. You have been screened and evaluated and felt safe for discharge. Health conditions do change or evolve sometimes and as such it is important that you follow up with your Primary Doctor to be re checked, 3-5 days is a general good time frame for follow up. You are always welcome to return to the ED for re assessment if your symptoms are worsening or you have new concerns Print Language: Belarusian Coding Level of Care Code ED [employer] for Francis Jennings
[2024-06-29 22:11] VITALS: BP 149/86; PULSE 84; RESP 16; O2SAT 95
[2024-06-29 22:18] LABS: Troponin 5 2HR 59.26 ng/L (0-15)
[2024-06-29 22:24] LABS: Troponin 5 2HR Delta -2.74 ABS# (0-10)
[2024-06-29 23:00] VITALS: BP 149/103; PULSE 72; RESP 16; O2SAT 97
[2024-06-29] MEDS: FUROsemide 10 mg/mL SDV 4mL 40 MG IVP (23:01)
[2024-06-29 23:24] VITALS: BP 155/92; PULSE 72; RESP 15; O2SAT 95
== END 2024-06-29 23:25 | disposition home or self-care (01) ==
PROVIDERS: Emergency Provider Emergency Medicine; PCP Family Medicine
DX: J90 Pleural effusion, not elsewhere classified (principal); Z79.82 Long term (current) use of aspirin; Z95.0 Presence of cardiac pacemaker; I25.10 Atherosclerotic heart disease of native coronary artery without angina pectoris; Z95.1 Presence of aortocoronary bypass graft; E78.5 Hyperlipidemia, unspecified; I11.0 Hypertensive heart disease with heart failure; I50.9 Heart failure, unspecified
CPT/HCPCS: 36415; 71045; 80053; 83880; 84484; 85025; 93005; 96374; 99285; J1940

== ENCOUNTER → 2024-09-14 07:47 | Outpatient (BNVA) | payer MEDICARE, SELFPAY | PROVIDERS: PCP Family Medicine; Visit Provider Nurse Practitioner Family | DX: I35.0 Nonrheumatic aortic (valve) stenosis (principal); I48.91 Unspecified atrial fibrillation; Z79.82 Long term (current) use of aspirin; I25.10 Atherosclerotic heart disease of native coronary artery without angina pectoris; I27.20 Pulmonary hypertension, unspecified; I10 Essential (primary) hypertension; Z95.2 Presence of prosthetic heart valve; Z95.1 Presence of aortocoronary bypass graft; Z95.0 Presence of cardiac pacemaker; I25.2 Old myocardial infarction | CPT/HCPCS: 99214 ==

== ENCOUNTER 2024-10-04 07:21 | Outpatient (CLI) | payer MEDICARE, SELFPAY ==
--- NOTE | 2024-10-04 07:45 | USCV_ITS ---
Saul Little Age: 88 Gender: M : 1935 Exam Date: 10/04/2024 07:53 Ordering Phys: Abigail John Technologist: [place] [facility] [place] cp ef BP: 128 / 72 HR: 73 Rhythm: Sinus Technical Quality: Adequate MEASUREMENTS (Male / Female) Normal Values 2D ECHO LV Diastolic Diameter PLAX 3.5 cm 4.2 - 5.9 / 3.9 - 5.3 cm IVS Diastolic Thickness 1.3 cm 0.6 - 1.0 / 0.6 - 0.9 cm IVS Systolic Thickness 2.1 cm LVPW Diastolic Thickness 1.2 cm 0.6 - 1.0 / 0.6 - 0.9 cm LVPW Systolic Thickness 2.2 cm LVOT Diameter 2.1 cm LV Ejection Fraction 2D Teich 51.0 % LV Ejection Fraction MOD 4C 54.1 % LV Ejection Fraction MOD 2C 83.3 % LV Ejection Fraction 2C AL 83.4 % LA Diameter 5.2 cm RA Systolic Volume 4C AL 128.9 ml RA Systolic Volume 4C MOD 119.0 ml Aorta at Sinotubular Diameter 3.5 cm IVC Diameter 2.5 cm DOPPLER AV Peak Velocity 174.3 cm/s LVOT Peak Velocity 59.0 cm/s AV Area Cont Eq vti 1.5 cm squared AV Area Cont Eq pk 1.1 cm squared MV Peak Velocity 99.0 cm/s MV Area PHT 3.9 cm squared Mitral E to A Ratio 4.0 TV Peak Velocity 295.0 cm/s TR Peak Velocity 326.0 cm/s TR Peak Gradient 42.5 mmHg TV Peak E Velocity 166.0 cm/s PV Peak Velocity 98.0 cm/s FINDINGS Left Ventricle Left ventricle is normal in size. LV systolic function is normal with EF of 55-60%. No regional wall motion abnormalities are seen. Mild left ventricular hypertrophy. Right Ventricle Normal in size and function. Pacemaker lead is seen Right Atrium Dilated Left Atrium Dilated Mitral Valve Structurally normal mitral valve. Mild mitral regurgitation Aortic Valve Bioprosthetic aortic valve. No significant stenosis or regurgitation. DVI is 0.4 and is normal Tricuspid Valve Mild tricuspid regurgitation. RVSP is 40-45 mmHg. This is consistent with mild pulmonary hypertension Pulmonic Valve Not well-visualized Pericardium Grossly normal Aorta Normal in size IVC Appears to be dilated CONCLUSIONS LV systolic function is normal with EF of 55-60%. Mild left ventricular hypertrophy. Biatrial enlargement. Mild mitral regurgitation. Normally functioning bioprosthetic aortic valve. Mild tricuspid regurgitation. Mild pulmonary hypertension. IVC appears to be dilated. Steven Lee MD (Electronically Signed) Final Date: 11 October 2024 10:17 S
== END 2024-10-04 07:22 | disposition home or self-care (01) ==
LOC: RAD 07:21
PROVIDERS: PCP Family Medicine; Visit Provider Nurse Practitioner Family
DX: Z95.0 Presence of cardiac pacemaker (principal); I34.0 Nonrheumatic mitral (valve) insufficiency; Z95.2 Presence of prosthetic heart valve; I07.1 Rheumatic tricuspid insufficiency; R93.1 Abnormal findings on diagnostic imaging of heart and coronary circulation
CPT/HCPCS: 93306

== ENCOUNTER → 2024-10-12 13:17 | Outpatient (BNVA) | payer MEDICARE, SELFPAY | PROVIDERS: PCP Family Medicine; Visit Provider Podiatrist Foot & Ankle Surgery | DX: I73.9 Peripheral vascular disease, unspecified (principal); L60.3 Nail dystrophy; L84 Corns and callosities; M20.41 Other hammer toe(s) (acquired), right foot; M20.42 Other hammer toe(s) (acquired), left foot; M20.31 Hallux varus (acquired), right foot | CPT/HCPCS: 11056; 11721; 99203 ==

== ENCOUNTER → 2024-11-22 13:27 | Outpatient (BNVA) | payer MEDICARE, SELFPAY | PROVIDERS: PCP Family Medicine; Visit Provider Internal Medicine | DX: I11.0 Hypertensive heart disease with heart failure (principal); I50.33 Acute on chronic diastolic (congestive) heart failure; I48.91 Unspecified atrial fibrillation; E78.2 Mixed hyperlipidemia; I25.10 Atherosclerotic heart disease of native coronary artery without angina pectoris; Z95.0 Presence of cardiac pacemaker | CPT/HCPCS: 99214 ==

== ENCOUNTER → 2024-12-21 14:34 | Outpatient (BNVA) | payer MEDICARE, SELFPAY | PROVIDERS: PCP Family Medicine; Visit Provider Podiatrist Foot & Ankle Surgery | DX: I73.9 Peripheral vascular disease, unspecified (principal); L60.3 Nail dystrophy; M20.41 Other hammer toe(s) (acquired), right foot; M20.42 Other hammer toe(s) (acquired), left foot; M20.31 Hallux varus (acquired), right foot | CPT/HCPCS: 11721 ==